=== PATIENT | male | born 1940 ===

== ENCOUNTER 2019-09-12 15:51 | Inpatient (IN) | payer MEDICARE, OTHER ==
[2019-09-12] MEDS ORDERED: Nitroglycerin 0.4 MG TAB 1 EACH SL PRN (17:09)
[2019-09-12 17:48] LABS: INR-International Normal Ratio 2.2; Prothrombin Time 24.1 SEC (12.0-14.7)
[2019-09-12] MEDS ORDERED: Warfarin Sodium 5 MG TAB PO SCH (20:00)
[2019-09-12] MEDS: Carvedilol 25 MG TAB PO SCH (20:41)
[2019-09-12] MEDS ORDERED: Atorvastatin Calcium 20 MG TAB PO SCH (21:00)
[2019-09-13 05:40] LABS: #Basophils 0.1 thou/uL (0.0-0.2); #Eosinphils 0.1 thou/uL (0.0-0.7); #Lymphocytes 0.5 thou/uL (1.20-3.40); #Monocytes 0.6 thou/uL (0.11-0.59); #Neutrophils 4.3 thou/uL (1.40-6.50); %Basophils 1.5 % (0.0-1.0); %Lymphocytes 9.3 % (21.0-51.0); %Monocytes 10.6 % (0.0-10.0); %Neutrophils 76.6 % (42.0-75.0); Hemoglobin 8.8 g/dL (14.0-18.0); Mean Corpuscular HGB CONC 31.4 g/dL (32.0-36.0); Mean Corpuscular Hemoglobin 25.7 pg (27.0-31.0); Mean Corpuscular Volume 81.9 fL (78.0-98.0); Mean Platelet Volume 9.4 fL (7.4-10.4); Platelet Count 198 thou/uL (130-400); RBC Distribution Width 17.7 % (11.5-14.5); Red Blood Cell (RBC) Count 3.44 mill/uL (4.70-6.10); White Blood Cell (WBC) Count 5.7 thou/uL (4.8-10.8)
[2019-09-13 05:49] LABS: INR-International Normal Ratio 1.9; Prothrombin Time 21.7 SEC (12.0-14.7)
[2019-09-13 06:00] LABS: ALT (SGPT) 26 U/L (8-55); AST (SGOT) 34 U/L (5-34); Albumin 3.3 g/dL (3.4-4.8); Alkaline Phosphatase 72 U/L (40-110); Anion Gap 16 mmol/L (10-20); BUN (Urea Nitrogen) 25 mg/dL (8.4-25.7); Bilirubin, Total 0.8 mg/dL (0.2-1.2); Calc. Creatinine Clearance 70 mL/min (70-130); Calcium 8.8 mg/dL (7.8-10.44); Carbon Dioxide 26 mmol/L (23-31); Chloride 102 mmol/L (98-107); Estimated GFR-MDRD 59; Globulin 2.8 g/dL (2.4-3.5); Glucose 126 mg/dL (83-110); Potassium 3.6 mmol/L (3.5-5.1); Protein, Total 6.1 g/dL (5.8-8.1); Sodium 140 mmol/L (136-145)
[2019-09-13] MEDS ORDERED: Furosemide 40 MG TAB PO SCH ×2 (06:15→09:00)
[2019-09-13] MEDS ORDERED: Dronedarone HCl 400 MG TAB PO SCH (08:00)
[2019-09-13] MEDS: Carvedilol 25 MG TAB PO SCH (08:20)
[2019-09-13] MEDS ORDERED: Aspirin 81 mg Enteric Coated Tablet PO SCH (09:00)
[2019-09-13] MEDS ORDERED: Lisinopril 10 MG TAB PO SCH (09:00)
[2019-09-13] MEDS ORDERED: Alogliptin 25 MG TAB PO SCH (09:00)
[2019-09-13] MEDS ORDERED: Nitroglycerin 0.4 MG TAB (25 Tab Bottle) SL PRN (09:47)
[2019-09-13] MEDS ORDERED: diphenhydrAMINE 25 MG CAP PO PRN (15:03)
--- NOTE | 2019-09-13 15:21 | HP ---
HISTORY OF PRESENT ILLNESS: Mr. Alfaro is a very pleasant 79-year-old white male, who was seen in my office on 09/06/2019. He has fatigue and feeling poorly and was found to be in atrial fibrillation with dyspnea on exertion and congestive heart failure. He was transferred to [facility], where he was treated medically. He eventually did have an echocardiogram by Dr. Kurtz. He was noted to be in atrial fibrillation and eventually was stabilized and transferred back to [facility] for physical therapy and occupational therapy. PAST MEDICAL HISTORY: 1. Hypertension. 2. Type 2 diabetes. 3. Coronary artery disease, status post CABG. 4. Osteoarthritis. 5. Hyperlipidemia. 6. Chronic obstructive pulmonary disease. 7. Mitral regurgitation. 8. Degenerative joint disease. 9. Congestive heart failure. PAST SURGICAL HISTORY: 1. CABG by Dr. Cho in 2000. 2. Left total knee replacement in 2007. 3. Mitral valve repair by Dr. Ramirez in [place] in 2003. 4. Cardiac catheterization by Dr. Rjaput in 2000. 5. Left eye cataract extraction by Dr. Baldwin in 2008. 6. Cataract extraction of the right eye in 2008. FAMILY HISTORY: Reveals the patient's father had Alzheimer's. The patient's mother had heart disease. The patient had one brother of lung cancer and one sister of colon cancer. The patient had 2 brothers and 7 sisters and 2 sons. No other children. SOCIAL HISTORY: Reveals the patient does not smoke. Lives with his spouse. Has his own business. He is . He has 2 children, both boys. Enjoyed help with any active exercise. He does drink typically once a day. ALLERGIES: THE PATIENT HAS NO KNOWN REGULAR ALLERGIES. REVIEW OF SYSTEMS: CONSTITUTIONAL: The patient denies fever, chills, or night sweats. Just has extreme fatigue. HEENT: The patient denies head injury or headaches. The patient denies visual changes. The patient denies change in his hearing. RESPIRATORY: The patient did previously have a cough, but it has resolved since he has been diuresed. The patient is short of breath with any exertion at this time. CARDIOVASCULAR: The patient denies PND, chest pain, orthopnea, or claudication. Denies also any edema. GI: Reveals the patient denies diarrhea, constipation, nausea, or vomiting. Denies hematemesis or hematochezia. Also, denies melena. : The patient denies any increased nocturia, dysuria, or hematuria. MUSCULOSKELETAL: The patient denies any joint swelling, joint pains, or stiffness. PHYSICAL EXAMINATION: VITAL SIGNS: Reveal blood pressure 137/72, pulse 97, respirations 18, O2 saturation 92% to 96% on 2 L, T-max 98.7. GENERAL: This is a well-developed, well-nourished, pleasant, 79-year-old, white male, in no apparent distress at this time. HEENT: Reveals normocephalic and nontraumatic cranium. Pupils are equal, round, and reactive. Extraocular movements are intact. Nose and throat are slightly dry. NECK: Supple without masses, nodes, or bruits. CHEST: Clear to auscultation. No rales, rhonchi, or wheezes are heard. HEART: Reveals a regular rate and rhythm without murmurs, gallops, or rubs. ABDOMEN: Soft and nontender without organomegaly. Normal bowel sounds are noted. No rebound or guarding is noted. : Deferred. EXTREMITIES: Reveal no clubbing, cyanosis, or edema. ASSESSMENT: 1. Status post atrial fibrillation. 2. Status post congestive heart failure. 3. Hypertension. 4. Coronary artery disease. 5. Hyperlipidemia. 6. Chronic obstructive pulmonary disease. 7. Degenerative joint disease. 8. Diabetes, type 2. 9. Generalized weakness. PLAN: 1. Continue present medications. 2. Further evaluation will be awaiting records from Cardiology. 3. The patient has generalized weakness. We will continue with his physical therapy and occupational therapy and his present hospital medications. PRESENT MEDICATIONS: The patient is presently on the followin. Alogliptin 25 mg daily. 2. Ecotrin 81 mg daily. 3. Lipitor 20 mg daily. 4. Coreg 12.5 mg b.i.d. 5. Cardizem 30 mg b.i.d. 6. Multaq 400 mg b.i.d. 7. Lasix 40 mg each day. 8. Lisinopril 10 mg daily. 9. Nitrostat (nitroglycerin) 1 q.5 minutes p.r.n. chest pain. 10. Warfarin 5 mg daily. Job ID: [id number]
[2019-09-13] MEDS ORDERED: Eucerin (Mineral Oil/Petrolatum,White) 30 gm Jar TOP PRN (16:35)
[2019-09-13] MEDS: Loratadine 10 MG TAB PO SCH (16:49)
[2019-09-13] MEDS: Warfarin Sodium 5 MG TAB PO SCH (16:50)
[2019-09-13] MEDS: Dronedarone HCl 400 MG TAB PO SCH (16:50)
[2019-09-13] MEDS ORDERED: Warfarin Sodium 5 MG TAB PO SCH ×2 (17:00)
[2019-09-13] MEDS: Carvedilol 6.25 MG TAB PO SCH (20:47)
[2019-09-13] MEDS: Eucerin (Mineral Oil/Petrolatum,White) 30 gm Jar TOP SCH (20:49)
[2019-09-13] MEDS ORDERED: Non-Formulary Item 1 EACH (Carvedilol [Coreg] 12.5 MG) PO SCH (21:00)
[2019-09-13] MEDS ORDERED: DILTIAZEM HCL 30 MG PO SCH (21:00)
[2019-09-14 05:26] LABS: INR-International Normal Ratio 2.1; Prothrombin Time 23.4 SEC (12.0-14.7)
[2019-09-14] MEDS: Lisinopril 10 MG TAB PO SCH (08:39)
[2019-09-14] MEDS: Atorvastatin Calcium 20 MG TAB PO SCH (08:39)
[2019-09-14] MEDS: Alogliptin 25 MG TAB PO SCH (08:39)
[2019-09-14] MEDS: Furosemide 40 MG TAB PO SCH (08:40)
[2019-09-14] MEDS: Carvedilol 6.25 MG TAB PO SCH ×2 (08:40→21:00)
[2019-09-14] MEDS: Eucerin (Mineral Oil/Petrolatum,White) 30 gm Jar TOP SCH ×2 (08:40→21:06)
[2019-09-14] MEDS: Aspirin 81 mg Enteric Coated Tablet PO SCH (08:40)
[2019-09-14] MEDS: Dronedarone HCl 400 MG TAB PO SCH ×2 (08:40→16:24)
[2019-09-14] MEDS ORDERED: Non-Formulary Item 1 EACH (Sitagliptin Phosphate [Januvia] 100 MG) PO SCH (09:00)
[2019-09-14] MEDS: Loratadine 10 MG TAB PO SCH (16:24)
[2019-09-14] MEDS: Warfarin Sodium 5 MG TAB PO SCH (16:25)
--- NOTE | 2019-09-14 17:24 | PRG ---
DATE OF SERVICE: 09/14/2019 Patient of Liana Dwyer MD SUBJECTIVE: The patient is lying in the bed, feeling well. Did have some chest tightness previously, but had resolved without treatment. He has been found within the last week to have new onset of atrial fibrillation with rapid ventricular response, seen and evaluated at [facility] and started on antiarrhythmic, some rate control and anticoagulation. He has remained however in atrial fibrillation. He has a previous history of mitral regurgitation status post surgical repair and coronary artery disease status post coronary artery bypass graft in 2000. However, he has had no significant symptoms of shortness of breath or chest pain until this episode, he was found earlier today to have tachycardia and hypotension associated with his therapy and with minimal symptoms of weakness and dizziness, but no chest pain or shortness of breath. He is taking at this time carvedilol, diltiazem, Multaq, and digoxin for rate control of his atrial fibrillation. He denies any orthopnea, palpitations, or edema. OBJECTIVE: VITAL SIGNS: At this time show blood pressure to be 109/56, pulse 61, earlier it was 80/42 with a pulse 73 and earlier in the day, it was with a pulse of 111. EKG this afternoon shows atrial fibrillation with no ischemic changes. LUNGS: Clear. CARDIAC: Shows a regular rhythm. ABDOMEN: Soft and nontender. SKIN/EXTREMITIES: Showed no edema. LABORATORY DATA: His laboratories done yesterday did show him to have an elevated BNP of 1245 and a slightly elevated BUN 25, creatinine 1.19, but a decreased hemoglobin of 8.8 compared to 12.1 two years ago. ASSESSMENT: 1. Atrial fibrillation with rapid ventricular response, being treated with multiple medications for rate control and for new onset of anticoagulation. 2. New onset of anemia, possibly contributing to hypotension. 3. Congestive heart failure with elevated BNP and minimal dyspnea on exertion, but not at rest. 4. Type 2 diabetes, controlled to goal. 5. Coronary artery disease, purely asymptomatic. PLAN: 1. Discontinue Cardizem. Continue carvedilol, digoxin, and Multaq for rate control. 2. Continue apixaban for anticoagulation. 3. Guaiac all stools and repeat CBC, basic metabolic profile, and BNP in the a.m. 4. Continue Accu-Cheks to monitor and titrate and control diabetes. Job ID: [id number]
[2019-09-15 05:59] LABS: #Basophils 0.1 thou/uL (0.0-0.2); #Eosinphils 0.2 thou/uL (0.0-0.7); #Lymphocytes 0.9 thou/uL (1.20-3.40); #Monocytes 0.6 thou/uL (0.11-0.59); #Neutrophils 4.3 thou/uL (1.40-6.50); %Basophils 1.6 % (0.0-1.0); %Eosinophils 2.9 % (0.0-10.0); %Lymphocytes 14.5 % (21.0-51.0); %Monocytes 9.3 % (0.0-10.0); %Neutrophils 71.7 % (42.0-75.0); Hemoglobin 8.1 g/dL (14.0-18.0); Mean Corpuscular HGB CONC 30.3 g/dL (32.0-36.0); Mean Corpuscular Hemoglobin 25.1 pg (27.0-31.0); Mean Corpuscular Volume 82.8 fL (78.0-98.0); Platelet Count 178 thou/uL (130-400); RBC Distribution Width 18.4 % (11.5-14.5); Red Blood Cell (RBC) Count 3.24 mill/uL (4.70-6.10); White Blood Cell (WBC) Count 5.9 thou/uL (4.8-10.8)
[2019-09-15 06:01] LABS: INR-International Normal Ratio 2.1; Prothrombin Time 23.8 SEC (12.0-14.7)
[2019-09-15 06:10] LABS: Anion Gap 15 mmol/L (10-20); BUN (Urea Nitrogen) 32 mg/dL (8.4-25.7); Calc. Creatinine Clearance 57 mL/min (70-130); Calcium 8.3 mg/dL (7.8-10.44); Carbon Dioxide 25 mmol/L (23-31); Chloride 100 mmol/L (98-107); Estimated GFR-MDRD 47; Glucose 97 mg/dL (83-110); Potassium 3.5 mmol/L (3.5-5.1); Sodium 136 mmol/L (136-145)
[2019-09-15] MEDS: Carvedilol 6.25 MG TAB PO SCH ×2 (08:44→20:50)
[2019-09-15] MEDS: Alogliptin 25 MG TAB PO SCH (08:44)
[2019-09-15] MEDS: Furosemide 40 MG TAB PO SCH (08:44)
[2019-09-15] MEDS: Lisinopril 10 MG TAB PO SCH (08:44)
[2019-09-15] MEDS: Dronedarone HCl 400 MG TAB PO SCH ×2 (08:44→17:56)
[2019-09-15] MEDS: Atorvastatin Calcium 20 MG TAB PO SCH (08:44)
[2019-09-15] MEDS: Aspirin 81 mg Enteric Coated Tablet PO SCH (08:44)
[2019-09-15] MEDS: Eucerin (Mineral Oil/Petrolatum,White) 30 gm Jar TOP SCH ×2 (08:44→20:52)
[2019-09-15] MEDS: Loratadine 10 MG TAB PO SCH (17:56)
[2019-09-15] MEDS: Warfarin Sodium 5 MG TAB PO SCH (17:57)
[2019-09-16 05:33] LABS: INR-International Normal Ratio 2.1; Prothrombin Time 23.6 SEC (12.0-14.7)
[2019-09-16] MEDS: Dronedarone HCl 400 MG TAB PO SCH ×2 (08:46→17:24)
[2019-09-16] MEDS: Furosemide 40 MG TAB PO SCH (08:46)
[2019-09-16] MEDS: Lisinopril 10 MG TAB PO SCH (08:46)
[2019-09-16] MEDS: Atorvastatin Calcium 20 MG TAB PO SCH (08:47)
[2019-09-16] MEDS: Aspirin 81 mg Enteric Coated Tablet PO SCH (08:47)
[2019-09-16] MEDS: Carvedilol 6.25 MG TAB PO SCH ×2 (08:47→20:32)
[2019-09-16] MEDS: Eucerin (Mineral Oil/Petrolatum,White) 30 gm Jar TOP SCH ×2 (08:48→20:33)
[2019-09-16] MEDS: Alogliptin 25 MG TAB PO SCH (08:48)
[2019-09-16] MEDS: Loratadine 10 MG TAB PO SCH (17:24)
[2019-09-16] MEDS: Warfarin Sodium 5 MG TAB PO SCH (17:25)
--- NOTE | 2019-09-16 20:59 | PRG ---
DATE OF SERVICE: 09/15/[address] Liana Dwyer. SUBJECTIVE: The patient feels much better. No further dizziness or lightheadedness. No palpitations, chest pain, or shortness of breath. He is sitting up in the chair, watching TV, but has been walking in the room and in the melgar. OBJECTIVE: VITAL SIGNS: Show temperature 98, pulse 90, respirations 18, O2 sat is 96% on room air, and blood pressure 123/68. LUNGS: Clear. CARDIAC: Shows irregularly irregular rhythm. ABDOMEN: Soft, nontender. SKIN/EXTREMITIES: Showed no edema, clubbing, or cyanosis. LABORATORY DATA: Show white count of 5900, hematocrit 26, and hemoglobin 8. PT 23, INR 2.1. Sodium 136, potassium 3.5, chloride 100, bicarb 25, BUN 32, and creatinine 1.46. ASSESSMENT: 1. Stabilizing atrial fibrillation. No further rapid ventricular response and stable blood pressure with no orthostasis. 2. Anemia, stable. 3. Congestive heart failure with persistent elevated BNP, but improving dyspnea on exertion and not at rest. 4. Type 2 diabetes, controlled to goal. 5. Coronary artery disease, asymptomatic. PLAN: 1. Continue on carvedilol, digoxin, and Multaq with no further Cardizem. 2. Continue warfarin for anticoagulation as appears to be therapeutic INR. 3. Guaiac all stools. 4. Continue Accu-Cheks. Monitor, titrate, and control diabetes. Job ID: [id number]
--- NOTE | 2019-09-16 21:06 | PRG ---
DATE OF SERVICE: 09/16/2019 SUBJECTIVE: The patient feels well, sitting up, watching TV, doing electric shave. States he has been walking in the melgar today in the room with no dyspnea or shortness of breath. OBJECTIVE: LUNGS: Clear. CARDIAC: Irregularly irregular rhythm. ABDOMEN: Soft and nontender. SKIN AND EXTREMITIES: Display no edema, clubbing, or cyanosis. NEUROLOGICAL: No focal findings. ASSESSMENT: 1. Atrial fibrillation with controlled ventricular response and adequate anticoagulation, on warfarin. 2. Type 2 diabetes, controlled to goal. 3. New onset of congestive heart failure, appears to be compensating but still persistent elevated BNP. 4. Anemia of unknown etiology. The patient is on anticoagulation, slightly worsen, and we will repeat in the a.m. as well as BNP and BMP. Job ID: [id number]
[2019-09-17 05:39] LABS: INR-International Normal Ratio 2.2; Prothrombin Time 24.5 SEC (12.0-14.7)
[2019-09-17 05:45] LABS: Anion Gap 14 mmol/L (10-20); BUN (Urea Nitrogen) 30 mg/dL (8.4-25.7); Calc. Creatinine Clearance 63 mL/min (70-130); Calcium 8.1 mg/dL (7.8-10.44); Carbon Dioxide 26 mmol/L (23-31); Chloride 100 mmol/L (98-107); Estimated GFR-MDRD 51; Glucose 101 mg/dL (83-110); Potassium 3.5 mmol/L (3.5-5.1); Sodium 136 mmol/L (136-145)
[2019-09-17 05:47] LABS: #Basophils 0.1 thou/uL (0.0-0.2); #Eosinphils 0.2 thou/uL (0.0-0.7); #Lymphocytes 0.7 thou/uL (1.20-3.40); #Monocytes 0.5 thou/uL (0.11-0.59); #Neutrophils 3.4 thou/uL (1.40-6.50); %Basophils 1.7 % (0.0-1.0); %Lymphocytes 13.8 % (21.0-51.0); %Monocytes 9.4 % (0.0-10.0); %Neutrophils 70.1 % (42.0-75.0); Hemoglobin 7.9 g/dL (14.0-18.0); Mean Corpuscular HGB CONC 30.7 g/dL (32.0-36.0); Mean Corpuscular Hemoglobin 25.4 pg (27.0-31.0); Mean Platelet Volume 10.2 fL (7.4-10.4); Platelet Count 195 thou/uL (130-400); RBC Distribution Width 18.7 % (11.5-14.5); Red Blood Cell (RBC) Count 3.11 mill/uL (4.70-6.10); White Blood Cell (WBC) Count 4.8 thou/uL (4.8-10.8)
[2019-09-17 05:48] LABS: Hypochromia SLIGHT = 6-15 cells (100X) (0-5/hpf); MDiff Complete? YES; Microcytosis SLIGHT = 6-15 cells (100X) (0-5/hpf); Platelet Morphology Comment Appears Adequate
[2019-09-17] MEDS: Dronedarone HCl 400 MG TAB PO SCH ×2 (08:42→17:29)
[2019-09-17] MEDS: Atorvastatin Calcium 20 MG TAB PO SCH (08:43)
[2019-09-17] MEDS: Aspirin 81 mg Enteric Coated Tablet PO SCH (08:43)
[2019-09-17] MEDS: Alogliptin 25 MG TAB PO SCH (08:43)
[2019-09-17] MEDS: Carvedilol 6.25 MG TAB PO SCH ×2 (08:43→20:39)
[2019-09-17] MEDS: Furosemide 40 MG TAB PO SCH (08:44)
[2019-09-17] MEDS: Lisinopril 10 MG TAB PO SCH (08:44)
[2019-09-17] MEDS: Eucerin (Mineral Oil/Petrolatum,White) 30 gm Jar TOP SCH ×2 (08:45→20:39)
[2019-09-17] MEDS: Loratadine 10 MG TAB PO SCH (17:29)
[2019-09-17] MEDS: Warfarin Sodium 5 MG TAB PO SCH (17:30)
--- NOTE | 2019-09-17 19:13 | PRG ---
DATE OF SERVICE: 09/17/2019 SUBJECTIVE: This is a well-developed, well-nourished, very pleasant 79-year-old white male who was seen in my office with new onset of atrial fibrillation. He was transferred to [facility] with significant dyspnea on exertion. He was treated medically. Had an echocardiogram by Dr. Kurtz and eventually stabilized and rate controlled. He was transferred to [facility] because of his extreme weakness. OBJECTIVE: VITAL SIGNS: Today reveal blood pressure 122/64, pulse ranging between 86 and 102, respirations 18, and O2 saturation 90% to 95% on 2 L nasal cannula. GENERAL: This is a well-developed, well-nourished, very pleasant 79-year-old white male, in no apparent distress at this time. HEENT: Reveals normocephalic and nontraumatic cranium. Pupils are equal, round, and reactive. Extraocular movements are intact. Nose and throat are slightly dry. NECK: Supple without masses, nodes, or bruits. CHEST: Clear to auscultation. No rales, rhonchi, or wheezes are heard. HEART: Reveals a regular rate and rhythm without murmurs, gallops, or rubs. ABDOMEN: Soft, nontender without organomegaly. Normal bowel sounds are noted. No rebound or guarding was noted. : Deferred. EXTREMITIES: Reveal no clubbing, cyanosis, or edema. Just generalized weakness which was much improved. ASSESSMENT: 1. New onset atrial fibrillation. 2. Congestive heart failure. 3. Hypertension. 4. Coronary artery disease, status post coronary artery bypass grafting. 5. Hyperlipidemia. 6. Chronic obstructive pulmonary disease. 7. Degenerative joint disease. 8. Diabetes, type 2. 9. Osteoarthritis. 10. Mitral regurgitation. 11. Generalized weakness. PLAN: 1. Continue present medications. 2. Continue to monitor the patient's diabetes with Accu-Cheks a.c. and at bedtime. 3. Continue to monitor the patient's diabetes closely. 4. Continue to monitor the patient for signs and symptoms of congestive heart failure. 5. Monitor the patient's respiratory status. 6. Stress ulcer prophylaxis. 7. Decubitus precautions. 8. DVT prophylaxis per Primary Service. 9. Physical Therapy and Occupational Therapy. 10. Continue to monitor the patient's INR. Job ID: [id number]
[2019-09-18 05:49] LABS: INR-International Normal Ratio 2.2; Prothrombin Time 24.1 SEC (12.0-14.7)
[2019-09-18] MEDS: Alogliptin 25 MG TAB PO SCH (08:21)
[2019-09-18] MEDS: Aspirin 81 mg Enteric Coated Tablet PO SCH (08:21)
[2019-09-18] MEDS: Dronedarone HCl 400 MG TAB PO SCH ×2 (08:21→16:52)
[2019-09-18] MEDS: Carvedilol 6.25 MG TAB PO SCH ×2 (08:22→20:58)
[2019-09-18] MEDS: Atorvastatin Calcium 20 MG TAB PO SCH (08:22)
[2019-09-18] MEDS: Furosemide 40 MG TAB PO SCH (08:22)
[2019-09-18] MEDS: Lisinopril 10 MG TAB PO SCH (08:23)
[2019-09-18] MEDS: Eucerin (Mineral Oil/Petrolatum,White) 30 gm Jar TOP SCH ×2 (08:23→20:59)
--- NOTE | 2019-09-18 10:45 | PRG ---
DATE OF SERVICE: 09/18/2019 SUBJECTIVE: Mr. Alfaro is a pleasant 79-year-old white male, with new onset of atrial fibrillation. Sent directly to [facility] because he had dyspnea on exertion. He is treated medically and had an echocardiogram by Dr. Kurtz. Eventually stabilized and rate controlled. He was transferred to [facility] because of extreme weakness, for physical therapy and occupational therapy. OBJECTIVE: VITAL SIGNS: Reveal blood pressure this morning was 121/74, pulse 92, respirations 18, O2 saturation 94% on nasal cannula 2 L, T-max is 98.5. GENERAL: On physical exam; this is a well-developed, well-nourished, very pleasant 79-year-old white male, in no apparent distress at this time. HEENT: Reveals normocephalic and nontraumatic cranium. Pupils are equal, round, and reactive. Extraocular movements are intact. Nose and throat are slightly dry. NECK: Supple without masses, nodes, or bruits. CHEST: Clear to auscultation. No rales, rhonchi, wheezes, or cough is heard. HEART: Reveals no murmurs, gallops, or rubs. He is rate controlled with atrial fibrillation. ABDOMEN: Soft, nontender without organomegaly. Normal bowel sounds noted in all 4 quadrants. No rebound or guarding is noted. : Deferred. EXTREMITIES: Reveal no clubbing or cyanosis, but he does have 1 to 2+ edema, which is stable. He has generalized weakness, which is significantly improved. ASSESSMENT: 1. New onset atrial fibrillation. 2. Congestive heart failure. 3. Hypertension. 4. Coronary artery disease, status post coronary artery bypass graft. 5. Hyperlipidemia. 6. Chronic obstructive pulmonary disease. 7. Degenerative joint disease. 8. Diabetes type 2. 9. Mitral regurgitation. 10. Osteoarthritis. 11. Generalized weakness. PLAN: 1. Continue present medications. 2. Continue to follow the patient's weight daily. 3. Continue to monitor the patient closely for signs and symptoms of congestive heart failure. 4. Monitor the patient's diabetes with Accu-Cheks a.c. and at bedtime. 5. Monitor the patient's blood pressure closely and adjust medications as needed. 6. Monitor the patient's respiratory status. 7. Stress ulcer prophylaxis. 8. Decubitus precautions. 9. DVT prophylaxis. 10. Physical therapy and occupational therapy. 11. Monitor the patient's INR. Job ID: [id number]
[2019-09-18] MEDS: Loratadine 10 MG TAB PO SCH (16:52)
[2019-09-18] MEDS: Warfarin Sodium 5 MG TAB PO SCH (16:52)
[2019-09-19] MEDS: Lisinopril 10 MG TAB PO SCH (08:58)
[2019-09-19] MEDS: Dronedarone HCl 400 MG TAB PO SCH ×2 (08:58→17:53)
[2019-09-19] MEDS: Furosemide 40 MG TAB PO SCH (08:59)
[2019-09-19] MEDS: Eucerin (Mineral Oil/Petrolatum,White) 30 gm Jar TOP SCH ×2 (08:59→20:21)
[2019-09-19] MEDS: Atorvastatin Calcium 20 MG TAB PO SCH (08:59)
[2019-09-19] MEDS: Alogliptin 25 MG TAB PO SCH (08:59)
[2019-09-19] MEDS: Carvedilol 6.25 MG TAB PO SCH ×2 (08:59→20:21)
[2019-09-19] MEDS: Aspirin 81 mg Enteric Coated Tablet PO SCH (08:59)
[2019-09-19] MEDS ORDERED: Furosemide 40 MG TAB PO SCH ×2 (10:45→14:30)
--- NOTE | 2019-09-19 15:24 | PRG ---
DATE OF SERVICE: 09/19/2019 SUBJECTIVE: Mr. Alfaro is a pleasant 79-year-old white male, with new onset of atrial fib. He was seen in my office and sent to [facility] because of his significant dyspnea. Treated medically and had an echocardiogram done by Dr. Kurtz. His rate was stabilized and controlled, and he was transferred to [facility] for PT and OT to increase his strength and stamina. Vital signs this morning reveal blood pressure of 121/74, pulse of 99, respirations of 20, and O2 sat of 92%. The patient began to have some shortness of breath. It was felt that the patient was most likely in CHF. Respiratory did give him a handheld neb treatment, but he received 40 of Lasix and promptly did much better. The patient states he actually woke up about 3 in the morning somewhat short of breath and got progressively worse after that. PHYSICAL EXAMINATION: GENERAL: A well-developed, well-nourished, very pleasant 79-year-old white male, in no apparent distress at this time. HEENT: Normocephalic and nontraumatic cranium. Pupils equally round and reactive. Extraocular movements are intact. Nose and throat are clear and moist. NECK: Supple without masses, nodes or bruits. CHEST: Clear to auscultation, but rales and wheezes are not heard. The patient has rare cough. The patient does have bibasilar rales in his bases. Apparently, they are much less than they were this morning. HEART: Regular rate and rhythm, rate controlled. ABDOMEN: Soft, nontender without organomegaly. Normal bowel sounds are noted in all 4 quadrants. : Deferred. EXTREMITIES: No clubbing, cyanosis, but about 2+ edema is noted. He has generalized weakness and his oxygen volume yesterday was 2 L or 2000 mL and today was 1000 during his acute exacerbation. ASSESSMENT: 1. Acute exacerbation of congestive heart failure. 2. New-onset atrial fibrillation, presently rate controlled. 3. Hypertension. 4. Coronary artery disease, status post coronary artery bypass graft. 5. . 6. Chronic obstructive pulmonary disease. 7. Degenerative joint disease. 8. Diabetes, type 2. 9. Mitral regurgitation. 10. Osteoarthritis. 11. Generalized weakness. PLAN: 1. The patient this morning and received an extra 40 this evening. 2. Continue other present medications. 3. Monitor the patient's weight daily. 4. Monitor the patient for any future signs and symptoms of congestive heart failure. 5. Monitor the patient's diabetes with Accu-Cheks a.c. and at bedtime. 6. Monitor the patient's blood pressure closely. 7. Monitor the patient's respiratory status. 8. Stress ulcer prophylaxis. 9. Decubitus precautions. 10. DVT prophylaxis. 11. Physical therapy and occupational therapy. 12. Monitor the patient's INR. Job ID: [id number]
[2019-09-19] MEDS: Loratadine 10 MG TAB PO SCH (17:53)
[2019-09-19] MEDS: Warfarin Sodium 5 MG TAB PO SCH (17:54)
[2019-09-20 05:38] LABS: Prothrombin Time 22.9 SEC (12.0-14.7)
[2019-09-20 05:45] LABS: #Basophils 0.1 thou/uL (0.0-0.2); #Eosinphils 0.2 thou/uL (0.0-0.7); #Lymphocytes 0.7 thou/uL (1.20-3.40); #Monocytes 0.6 thou/uL (0.11-0.59); #Neutrophils 3.9 thou/uL (1.40-6.50); %Basophils 1.9 % (0.0-1.0); %Eosinophils 3.9 % (0.0-10.0); %Lymphocytes 13.3 % (21.0-51.0); %Monocytes 10.5 % (0.0-10.0); %Neutrophils 70.5 % (42.0-75.0); Hemoglobin 8.4 g/dL (14.0-18.0); Hypochromia SLIGHT = 6-15 cells (100X) (0-5/hpf); MDiff Complete? YES; Mean Corpuscular HGB CONC 30.2 g/dL (32.0-36.0); Mean Corpuscular Volume 82.8 fL (78.0-98.0); Mean Platelet Volume 9.6 fL (7.4-10.4); Ovalocytes SLIGHT = 2-5 cells (100X) (0-1/hpf); Platelet Count 208 thou/uL (130-400); Platelet Morphology Comment Appears Adequate; RBC Distribution Width 18.8 % (11.5-14.5); Red Blood Cell (RBC) Count 3.37 mill/uL (4.70-6.10); White Blood Cell (WBC) Count 5.5 thou/uL (4.8-10.8)
[2019-09-20 05:46] LABS: Anion Gap 16 mmol/L (10-20); BUN (Urea Nitrogen) 36 mg/dL (8.4-25.7); Calc. Creatinine Clearance 49 mL/min (70-130); Calcium 8.5 mg/dL (7.8-10.44); Carbon Dioxide 23 mmol/L (23-31); Chloride 101 mmol/L (98-107); Estimated GFR-MDRD 39; Glucose 121 mg/dL (83-110); Potassium 3.6 mmol/L (3.5-5.1); Sodium 136 mmol/L (136-145)
[2019-09-20] MEDS ORDERED: Furosemide 40 MG/4 ML VIAL ONE (05:56)
[2019-09-20] MEDS ORDERED: Furosemide 80 MG TAB PO SCH (06:15)
[2019-09-20] MEDS: Furosemide 40 MG TAB PO SCH ×2 (07:01→16:23)
--- NOTE | 2019-09-20 07:51 | RAD ---
Chest AP view INDICATION: Shortness of breath COMPARISON: None FINDINGS: Lungs:There is interstitial and airspace opacities seen most prominently within the right upper lobe suspicious for pneumonia. Asymmetric pulmonary edema could have a similar appearance. There is a background of underlying interstitial and airspace edema seen throughout both lungs. Cardiac silhouette:There is mild cardiomegaly Pulmonary vasculature:There is mild pulmonary vascular congestion Pleural spaces:There are small bilateral pleural effusions. Upper abdomen:No abnormality seen. Osseous structures: No acute osseous abnormality. Additional findings:Changes of prior CABG. IMPRESSION: 1. Findings suggesting [id number] CHF. 2. More prominent airspace opacity in the right upper lobe may reflect asymmetric airspace edema; how ever, pneumonia could have a similar appearance.
[2019-09-20] MEDS: Atorvastatin Calcium 20 MG TAB PO SCH (08:15)
[2019-09-20] MEDS: Carvedilol 6.25 MG TAB PO SCH ×2 (08:15→21:34)
[2019-09-20] MEDS: Lisinopril 10 MG TAB PO SCH (08:15)
[2019-09-20] MEDS: Dronedarone HCl 400 MG TAB PO SCH ×2 (08:15→16:23)
[2019-09-20] MEDS: Aspirin 81 mg Enteric Coated Tablet PO SCH (08:15)
[2019-09-20] MEDS: Alogliptin 25 MG TAB PO SCH (08:16)
[2019-09-20] MEDS: Eucerin (Mineral Oil/Petrolatum,White) 30 gm Jar TOP SCH ×2 (08:16→21:34)
[2019-09-20] MEDS: Warfarin Sodium 5 MG TAB PO SCH (16:23)
[2019-09-20] MEDS: Loratadine 10 MG TAB PO SCH (16:23)
--- NOTE | 2019-09-20 18:47 | PRG ---
DATE OF SERVICE: 09/20/2019 SUBJECTIVE: Mr. Alfaro is a 79-year-old white male, seen in my office with acute onset of shortness of breath and weakness. He was found to have atrial fibrillation and was transferred to [facility] for further evaluation. There, he was seen by Dr. Kurtz, treated medically, and stabilized. His rate was controlled, and he was transferred back to [facility] for physical therapy and occupational therapy to increase his strength and stamina. The patient this morning awakened about 7 o'clock and had some shortness of breath. He was given a handheld nebulizer treatment and also was given 80 of Lasix. He diuresed quite a bit. He states he could breathe better. By the time I saw him about 9 o'clock, he had been treated with therapy and tolerated therapy well and was doing well. He had no concerns or complaints. OBJECTIVE: VITAL SIGNS: This morning revealed blood pressure 116/63, oxygen sat went from 90% to 99%, respirations went from 22 to 18, pulse went from 103 down to 88, and T-max is 98.3. GENERAL: This patient is a well-developed, well-nourished, pleasant 79-year-old white male, who states he is much improved and back to his normal. HEENT: Reveals normocephalic and nontraumatic cranium. Pupils are equal, round, and reactive. Extraocular movements are intact. Nose and throat are clear, slightly dry. NECK: Supple without masses, nodes, or bruits. CHEST: Clear to auscultation. No rales are heard at this time. No wheezes are noted. HEART: Reveals irregularly irregular but rate controlled rhythm. ABDOMEN: Soft, nontender without organomegaly. Normal bowel sounds noted in all 4 quadrants. : Deferred. EXTREMITIES: Revealed no clubbing, cyanosis, with 1+ edema in lower extremities. ASSESSMENT: 1. Acute exacerbation of congestive heart failure. 2. New onset of atrial fib, presently rate controlled. 3. Hypertension. 4. Coronary artery disease. 5. Chronic obstructive pulmonary disease. 6. Degenerative joint disease. 7. Diabetes type 2. 8. Mitral regurgitation. 9. Osteoarthritis. 10. Generalized weakness. PLAN: 1. The patient received 80 mg of Lasix this morning. 2. By the time I saw him this morning, he was back to his normal. 3. Continue to weigh the patient daily. 4. Monitor the patient for any future signs and symptoms of CHF. 5. Monitor the patient's diabetes with Accu-Cheks before meals and at bedtime. 6. Monitor the patient's blood pressure closely. 7. Monitor the patient's respiratory status. 8. Stress ulcer prophylaxis. 9. Decubitus precautions. 10. DVT prophylaxis. 11. Physical therapy and occupational therapy. 12. Continue to monitor the patient's INR. Job ID: [id number]
[2019-09-21 05:25] LABS: INR-International Normal Ratio 2.2; Prothrombin Time 24.2 SEC (12.0-14.7)
[2019-09-21] MEDS: Dronedarone HCl 400 MG TAB PO SCH ×2 (08:20→17:17)
[2019-09-21] MEDS: Aspirin 81 mg Enteric Coated Tablet PO SCH (08:20)
[2019-09-21] MEDS: Carvedilol 6.25 MG TAB PO SCH ×2 (08:21→21:46)
[2019-09-21] MEDS: Lisinopril 10 MG TAB PO SCH (08:21)
[2019-09-21] MEDS: Atorvastatin Calcium 20 MG TAB PO SCH (08:22)
[2019-09-21] MEDS: Alogliptin 25 MG TAB PO SCH (08:22)
[2019-09-21] MEDS: Furosemide 40 MG TAB PO SCH ×2 (08:22→14:00)
[2019-09-21] MEDS: Eucerin (Mineral Oil/Petrolatum,White) 30 gm Jar TOP SCH ×2 (08:22→21:47)
--- NOTE | 2019-09-21 15:47 | PRG ---
DATE OF SERVICE: 09/21/2019 SUBJECTIVE: Mr. Alfaro is a very pleasant 79-year-old white male, who presented to my office with acute shortness of breath and weakness. He was found to have atrial fib, transferred to [facility] for further evaluation, was seen by Dr. Kurtz. He was treated medically, stabilized. Heart rate was controlled, transferred back to [facility] for PT, OT, and increase his strength and stamina. The patient requested a family meeting with both of his sons present, that occurred today from 1 o'clock until about 0150 hours. At that time, we discussed all of his diagnoses, especially his atrial fibrillation and his COPD. He has been having some congestive heart failure signs and symptoms over the past 2 days and required more Lasix and handheld nebulizers. He does have a 40 plus pack-year history of smoking, so he does also have an element of COPD. Discussion was also about approximate future plans including discharge to home, where he will have either outpatient physical therapy and occupational therapy or home health with physical therapy and occupational therapy going to his home. It is also recommended that he will have a sleep study with Dr. Donta Claros in the future. It is also recommended that he will get restarted on his vitamin D3 of 2000 units also. The patient already has an appointment with Dr. John Rajput at 2 o'clock on October 10. OBJECTIVE: VITAL SIGNS: Today reveal blood pressure 110/63, pulse 86 to 99, respirations 18 to 20, O2 saturation is on 3 L, T-max 96.0. GENERAL: This is a well-developed, well-nourished, pleasant white male, in no apparent distress. His 2 sons were present during the whole interview and physical. NECK: Supple without masses, nodes, or bruits. CHEST: Clear with minimal rales noted in the left base mainly. No wheezes were noted. HEART: Reveals a continued irregularly irregular rate and rhythm without murmurs, gallops, or rubs. ABDOMEN: Still soft, nontender without organomegaly. Normal bowel sounds noted in all 4 quadrants. No rebound or guarding is noted. : Deferred. EXTREMITIES: Continues with 1+ edema in lower extremities. The patient has an ER weight today of 206. ASSESSMENT: 1. Acute exacerbation of congestive heart failure. 2. New-onset atrial fib, presently rate controlled. 3. Hypertension. 4. Coronary artery disease. 5. Chronic obstructive pulmonary disease. 6. Degenerative joint disease. 7. Diabetes type 2. 8. Mitral regurgitation. 9. Osteoarthritis. 10. Generalized weakness. PLAN: 1. The patient will continue with Lasix 40 b.i.d. at this time. 2. He will continue with handheld nebs q.i.d. and p.r.n. 3. Continue with a daily weight on the same standing scale daily. 4. Monitor the patient for signs and symptoms of CHF. 5. Monitor the patient's diabetes with Accu-Cheks a.c. and at bedtime. 6. Continue to monitor the patient's blood pressure closely and adjust medications if needed. 7. Monitor the patient's respiratory status. 8. Stress ulcer prophylaxis. 9. Decubitus precautions. 10. Continue physical therapy and occupational therapy. 11. Continue to maintain the patient's INR between 2 and 3, it is presently 2.2. Job ID: [id number]
[2019-09-21] MEDS: Warfarin Sodium 5 MG TAB PO SCH (17:17)
[2019-09-21] MEDS: Loratadine 10 MG TAB PO SCH (17:17)
[2019-09-22 05:35] LABS: INR-International Normal Ratio 2.1; Prothrombin Time 23.7 SEC (12.0-14.7)
[2019-09-22] MEDS: Alogliptin 25 MG TAB PO SCH (08:13)
[2019-09-22] MEDS: Dronedarone HCl 400 MG TAB PO SCH ×2 (08:13→17:17)
[2019-09-22] MEDS: Aspirin 81 mg Enteric Coated Tablet PO SCH (08:13)
[2019-09-22] MEDS: Carvedilol 6.25 MG TAB PO SCH ×2 (08:14→20:54)
[2019-09-22] MEDS: Atorvastatin Calcium 20 MG TAB PO SCH (08:14)
[2019-09-22] MEDS: Furosemide 40 MG TAB PO SCH ×2 (08:15→13:00)
[2019-09-22] MEDS: Lisinopril 10 MG TAB PO SCH (08:15)
[2019-09-22] MEDS: Eucerin (Mineral Oil/Petrolatum,White) 30 gm Jar TOP SCH ×3 (08:15→20:54)
--- NOTE | 2019-09-22 10:51 | PRG ---
DATE OF SERVICE: 09/22/2019 SUBJECTIVE: Mr. Alfaro is up in his chair and denies any complaints. He states that his breathing is better. He is still on oxygen via nasal cannula. No family at bedside. Discussed with nursing. OBJECTIVE: VITAL SIGNS: He is afebrile. Heart rate is 99, respirations 20, oxygen saturation 100% on 3 L, and blood pressure 125/57. CARDIOVASCULAR SYSTEM: S1 and S2 plus. RESPIRATORY SYSTEM: Normal vesicular breath sounds with occasional crackle. ABDOMEN: Soft and nontender. Bowel sounds heard in all quadrants. EXTREMITIES: Without cyanosis or clubbing. Trace edema. CENTRAL NERVOUS SYSTEM: Generalized weakness, otherwise nonfocal. IMPRESSION: 1. Atrial fibrillation, rate controlled. 2. Resolving acute on chronic congestive heart failure, likely systolic. 3. Possible chronic obstructive pulmonary disease. 4. Acute hypoxemic respiratory failure. 5. Diabetes mellitus, type 2. 6. Hypertension. 7. Coronary artery disease. PLAN: 1. Continue current medications. 2. Heart-healthy 1800-calorie ADA diet. 3. Accu-Cheks with sliding scale coverage. 4. Titrate oxygen as tolerated. 5. Breathing treatments as needed. 6. Recheck BMP tomorrow. 7. Physical therapy. 8. DVT and stress ulcer prophylaxis. Job ID: [id number]
[2019-09-22] MEDS: Warfarin Sodium 5 MG TAB PO SCH (17:17)
[2019-09-22] MEDS: Loratadine 10 MG TAB PO SCH (17:17)
[2019-09-23 05:30] LABS: INR-International Normal Ratio 2.4
[2019-09-23 05:37] LABS: Anion Gap 14 mmol/L (10-20); BUN (Urea Nitrogen) 40 mg/dL (8.4-25.7); Calc. Creatinine Clearance 43 mL/min (70-130); Calcium 8.4 mg/dL (7.8-10.44); Carbon Dioxide 26 mmol/L (23-31); Chloride 100 mmol/L (98-107); Estimated GFR-MDRD 32; Glucose 111 mg/dL (83-110); Potassium 3.4 mmol/L (3.5-5.1); Sodium 137 mmol/L (136-145)
[2019-09-23] MEDS: Dronedarone HCl 400 MG TAB PO SCH ×2 (08:28→17:45)
[2019-09-23] MEDS: Aspirin 81 mg Enteric Coated Tablet PO SCH (08:29)
[2019-09-23] MEDS: Alogliptin 25 MG TAB PO SCH (08:29)
[2019-09-23] MEDS: Atorvastatin Calcium 20 MG TAB PO SCH (08:30)
[2019-09-23] MEDS: Lisinopril 10 MG TAB PO SCH (08:30)
[2019-09-23] MEDS: Furosemide 40 MG TAB PO SCH ×2 (08:30→14:50)
[2019-09-23] MEDS: Carvedilol 6.25 MG TAB PO SCH ×2 (08:30→21:00)
[2019-09-23] MEDS: Eucerin (Mineral Oil/Petrolatum,White) 30 gm Jar TOP SCH ×2 (08:31→21:00)
--- NOTE | 2019-09-23 12:46 | PRG ---
DATE OF SERVICE: 09/23/2019 SUBJECTIVE: Mr. Alfaro is up in his chair and eating lunch. He denies any chest pain or shortness of breath. He did have some chest congestion this morning, but it cleared after he had a couple of deep coughs. OBJECTIVE: VITAL SIGNS: He is afebrile, heart rate is 108, respirations 20, oxygen saturation 94% on 3 L, blood pressure 121/74. CARDIOVASCULAR SYSTEM: S1 and S2 plus. RESPIRATORY SYSTEM: Normal vesicular breath sounds. ABDOMEN: Soft and nontender. Bowel sounds heard in all quadrants. EXTREMITIES: 2+ edema. CENTRAL NERVOUS SYSTEM: Generalized weakness. LABORATORY VALUES: Sodium 137, potassium 3.4, BUN and creatinine are 40 and 2.02. Blood sugars are 118, 115, 144, and 179. His INR is 2.4. IMPRESSION: 1. Resolving systolic congestive heart failure exacerbation. 2. Atrial fibrillation. 3. Acute hypoxemic respiratory failure. 4. Diabetes mellitus, type 2. 5. Hypertension. 6. Coronary artery disease. PLAN: 1. Continue current medications, but replace potassium. 2. Heart healthy 1800-calorie ADA diet. 3. Accu-Cheks with sliding scale coverage. 4. Titrate oxygen. 5. Routine laboratory values. 6. Physical therapy. 7. DVT prophylaxis, he is on warfarin. 8. Dr. Yuliya steele. Job ID: [id number]
[2019-09-23] MEDS: Warfarin Sodium 5 MG TAB PO SCH (17:45)
[2019-09-23] MEDS: Loratadine 10 MG TAB PO SCH (17:45)
[2019-09-24 05:26] LABS: INR-International Normal Ratio 2.3
[2019-09-24 05:34] LABS: Anion Gap 15 mmol/L (10-20); BUN (Urea Nitrogen) 41 mg/dL (8.4-25.7); Calc. Creatinine Clearance 39 mL/min (70-130); Calcium 8.6 mg/dL (7.8-10.44); Carbon Dioxide 27 mmol/L (23-31); Chloride 101 mmol/L (98-107); Estimated GFR-MDRD 29; Glucose 114 mg/dL (83-110); Potassium 3.8 mmol/L (3.5-5.1); Sodium 139 mmol/L (136-145)
[2019-09-24] MEDS: Aspirin 81 mg Enteric Coated Tablet PO SCH (08:23)
[2019-09-24] MEDS: Potassium Chloride 20 MEQ TAB PO SCH (08:24)
[2019-09-24] MEDS: Furosemide 40 MG TAB PO SCH (08:24)
[2019-09-24] MEDS: Alogliptin 25 MG TAB PO SCH (08:24)
[2019-09-24] MEDS: Lisinopril 10 MG TAB PO SCH (08:24)
[2019-09-24] MEDS: Dronedarone HCl 400 MG TAB PO SCH ×2 (08:24→17:28)
[2019-09-24] MEDS: Atorvastatin Calcium 20 MG TAB PO SCH (08:24)
[2019-09-24] MEDS: Eucerin (Mineral Oil/Petrolatum,White) 30 gm Jar TOP SCH ×2 (08:25→20:32)
[2019-09-24] MEDS: Carvedilol 6.25 MG TAB PO SCH ×2 (08:25→20:30)
[2019-09-24] MEDS: Loratadine 10 MG TAB PO SCH (17:29)
[2019-09-24] MEDS: Warfarin Sodium 5 MG TAB PO SCH (17:29)
--- NOTE | 2019-09-24 19:07 | PRG ---
DATE OF SERVICE: 09/24/2019 SUBJECTIVE: Mr. Alfaro is a very pleasant 79-year-old white male, who presented to my office with acute shortness of breath and in atrial fibrillation. He was transferred to [facility], seen by Dr. Kurtz and evaluated and stabilized. He was transferred back to [facility] after about a week for physical therapy and occupational therapy to increase his strength and stamina. Over the weekend, the patient did get out of bed and spend some time with his son sitting up, but he did not have any significant walking spells. This morning, he has already walked. States he did fairly well and walked about 230 feet again. He states he is definitely getting stronger each day. He has no concerns or complaints today. OBJECTIVE: VITAL SIGNS: Today reveal blood pressure 127/78, pulse 87 to 96, respirations 20, O2 saturation 95% on 2 L. GENERAL: This is a well-developed, well-nourished, very pleasant, 79-year-old, white male, in no apparent distress at this time. HEENT: Reveals normocephalic and nontraumatic cranium. Pupils are equally round and reactive. Extraocular movements are intact. Nose and throat are slightly dry, but clear. NECK: Supple without masses, nodes, or bruits. CHEST: Clear to auscultation. No rales, no rhonchi, no wheezes are heard today. HEART: Reveals an irregularly irregular rate and rhythm without murmurs, gallops, or rubs. ABDOMEN: Soft and nontender without organomegaly. Normal bowel sounds noted in all 4 quadrants. No rebound or guarding is noted. : Deferred. EXTREMITIES: Reveal the patient has continued edema at the lower extremities of 1+. His weight today was 194 pounds. It is down from 206 last Tuesday. The patient states he is feeling better, and his oxygenation is better, and his spirometry is much better going all the way up to about 2200 mL volume. LABORATORY DATA: Laboratory reveals INR this morning 2.3. Sodium 139, potassium 3.8, chloride 101, BUN 41, creatinine up from 2.01 yesterday to 2.22 this morning. Sugar is stable. ASSESSMENT: 1. Acute exacerbation of chronic obstructive pulmonary disease. 2. New onset atrial fibrillation, presently rate controlled. 3. Hypertension. 4. Coronary artery disease. 5. Chronic obstructive pulmonary disease. 6. History of recent respiratory failure. 7. Degenerative joint disease. 8. Diabetes, type 2. 9. Mitral regurgitation. 10. Osteoarthritis. 11. Generalized weakness. PLAN: 1. We will decrease his Lasix from 40 b.i.d. to 40 each morning. 2. The patient will continue handheld nebs p.r.n. 3. Continue daily weight on the same standing scale. 4. Monitor the patient for signs and symptoms of CHF. 5. Monitor the patient's diabetes with Accu-Cheks a.c. and at bedtime. 6. Continue to monitor the patient's blood pressure closely and adjust medications as needed. 7. Monitor the patient's respiratory status. 8. Stress ulcer prophylaxis. 9. Decubitus precautions. 10. Continue physical therapy and occupational therapy. 11. Continue INR monitoring. His INR today was 2.3. Job ID: [id number]
[2019-09-25 05:23] LABS: INR-International Normal Ratio 2.4; Prothrombin Time 26.3 SEC (12.0-14.7)
[2019-09-25 05:30] LABS: Anion Gap 16 mmol/L (10-20); BUN (Urea Nitrogen) 45 mg/dL (8.4-25.7); Calc. Creatinine Clearance 29 mL/min (70-130); Calcium 8.3 mg/dL (7.8-10.44); Carbon Dioxide 26 mmol/L (23-31); Chloride 100 mmol/L (98-107); Estimated GFR-MDRD 24; Glucose 111 mg/dL (83-110); Sodium 138 mmol/L (136-145)
[2019-09-25] MEDS: Lisinopril 10 MG TAB PO SCH (09:39)
[2019-09-25] MEDS: Potassium Chloride 20 MEQ TAB PO SCH (09:39)
[2019-09-25] MEDS: Alogliptin 25 MG TAB PO SCH (09:40)
[2019-09-25] MEDS: Dronedarone HCl 400 MG TAB PO SCH ×2 (09:40→17:01)
[2019-09-25] MEDS: Carvedilol 6.25 MG TAB PO SCH ×2 (09:40→21:33)
[2019-09-25] MEDS: Atorvastatin Calcium 20 MG TAB PO SCH (09:41)
[2019-09-25] MEDS: Furosemide 40 MG TAB PO SCH (09:41)
[2019-09-25] MEDS: Aspirin 81 mg Enteric Coated Tablet PO SCH (09:41)
[2019-09-25] MEDS: Eucerin (Mineral Oil/Petrolatum,White) 30 gm Jar TOP SCH ×2 (09:43→21:34)
[2019-09-25] MEDS: Warfarin Sodium 5 MG TAB PO SCH (17:01)
[2019-09-25] MEDS: Loratadine 10 MG TAB PO SCH (17:01)
[2019-09-26 05:52] LABS: INR-International Normal Ratio 2.5; Prothrombin Time 26.9 SEC (12.0-14.7)
[2019-09-26 05:59] LABS: ALT (SGPT) 16 U/L (8-55); AST (SGOT) 23 U/L (5-34); Albumin 2.9 g/dL (3.4-4.8); Alkaline Phosphatase 64 U/L (40-110); Anion Gap 17 mmol/L (10-20); BUN (Urea Nitrogen) 45 mg/dL (8.4-25.7); Bilirubin, Total 0.8 mg/dL (0.2-1.2); Calc. Creatinine Clearance 32 mL/min (70-130); Calcium 8.3 mg/dL (7.8-10.44); Carbon Dioxide 25 mmol/L (23-31); Chloride 100 mmol/L (98-107); Estimated GFR-MDRD 23; Glucose 111 mg/dL (83-110); Protein, Total 5.9 g/dL (5.8-8.1); Sodium 138 mmol/L (136-145)
[2019-09-26 06:02] LABS: #Basophils 0.1 thou/uL (0.0-0.2); #Eosinphils 0.1 thou/uL (0.0-0.7); #Lymphocytes 0.8 thou/uL (1.20-3.40); #Monocytes 0.9 thou/uL (0.11-0.59); #Neutrophils 6.4 thou/uL (1.40-6.50); %Basophils 1.7 % (0.0-1.0); %Eosinophils 0.6 % (0.0-10.0); %Lymphocytes 9.8 % (21.0-51.0); %Monocytes 10.3 % (0.0-10.0); %Neutrophils 77.6 % (42.0-75.0); Hemoglobin 8.1 g/dL (14.0-18.0); Hypochromia MODERATE=16-30 cells (100X) (0-5/hpf); MDiff Complete? YES; Mean Corpuscular HGB CONC 30.4 g/dL (32.0-36.0); Mean Corpuscular Hemoglobin 25.2 pg (27.0-31.0); Mean Corpuscular Volume 82.6 fL (78.0-98.0); Mean Platelet Volume 10.1 fL (7.4-10.4); Microcytosis MODERATE=15-30 cells (100X) (0-5/hpf); Platelet Count 242 thou/uL (130-400); Platelet Morphology Comment Appears Adequate; RBC Distribution Width 19.8 % (11.5-14.5); Red Blood Cell (RBC) Count 3.21 mill/uL (4.70-6.10); White Blood Cell (WBC) Count 8.2 thou/uL (4.8-10.8)
--- NOTE | 2019-09-26 07:20 | PRG ---
DATE OF SERVICE: 09/25/2019 SUBJECTIVE: Mr. Alfaro is a very pleasant 79-year-old white male, who presented to my office in new onset atrial fibrillation with acute shortness of breath. He was transferred to [facility], seen by Dr. Kurtz and evaluated and stabilized. He was transferred to [facility] after about a week of being at the bed. He was transferred here for physical therapy and occupational therapy to increase his strength and stamina. Over the weekend, the patient has had some off and on spells of CHF and acute exacerbation of his COPD. This morning, he continues to walk a bit better and do better with his incentive spirometry. He thinks he is getting little stronger every day. He has no concerns or complaints today. OBJECTIVE: VITAL SIGNS: Today reveal blood pressure this morning 116/64, pulse 87 to 104, respirations 20, O2 saturation 92% to 93% on 2 to 3 L, T-max 99.7. GENERAL: This is a well-developed, well-nourished, very pleasant, tall, skinny 79-year-old white male, in no apparent distress at this time. HEENT: Reveals normocephalic and nontraumatic cranium. Pupils are equal, round, and reactive. Extraocular movements are intact. Nose and throat are slightly dry today. NECK: Supple without masses, nodes, or bruits. CHEST: Clear to auscultation. No rales, rhonchi, wheezes, or cough is heard. HEART: Reveals an irregularly irregular rate and rhythm without murmurs, gallops, or rubs. ABDOMEN: Soft, nontender without organomegaly. Normal bowel sounds are noted in all 4 quadrants. No rebound or guarding is noted today. : Deferred. EXTREMITIES: Reveals the patient continues to have 1 to 2+ edema. The patient's weight yesterday was 194 and the patient's weight today is 223. Obviously that is not correct. The patient states he feels better and is oxygenating better and he is able to get about 2000 mL in his incentive spirometry. ASSESSMENT: 1. Acute exacerbation of chronic obstructive pulmonary disease. 2. New onset atrial fibrillation, presently rate controlled. 3. Hypertension. 4. Coronary artery disease. 5. Chronic obstructive pulmonary disease. 6. History of recent respiratory failure. 7. Degenerative joint disease. 8. Diabetes, type 2. 9. Mitral regurgitation. 10. Osteoarthritis. 11. Generalized weakness. PLAN: 1. We will decrease his Lasix from 40 b.i.d. to 40 each morning since his creatinine has gone up to 2.2. 2. Continue handheld nebs. 3. Continue daily weights on the same standing scale. 4. Monitor the patient for signs and symptoms of CHF. 5. Monitor the patient's diabetes with Accu-Cheks before meals and at bedtime. 6. Continue to monitor the patient's blood pressure closely and adjust medications as needed. 7. Monitor the patient's respiratory status. 8. Stress ulcer prophylaxis. 9. Decubitus precautions. 10. Continue physical therapy and occupational therapy. 11. Continue monitoring the patient's INR. Job ID: [id number]
[2019-09-26] MEDS: Potassium Chloride 20 MEQ TAB PO SCH (08:19)
[2019-09-26] MEDS: Carvedilol 6.25 MG TAB PO SCH ×2 (08:19→20:25)
[2019-09-26] MEDS: Atorvastatin Calcium 20 MG TAB PO SCH (08:19)
[2019-09-26] MEDS: Furosemide 40 MG TAB PO SCH (08:19)
[2019-09-26] MEDS: Aspirin 81 mg Enteric Coated Tablet PO SCH (08:19)
[2019-09-26] MEDS: Dronedarone HCl 400 MG TAB PO SCH ×2 (08:19→16:39)
[2019-09-26] MEDS: Alogliptin 25 MG TAB PO SCH (08:19)
[2019-09-26] MEDS: Eucerin (Mineral Oil/Petrolatum,White) 30 gm Jar TOP SCH ×2 (08:20→20:26)
[2019-09-26] MEDS: Lisinopril 10 MG TAB PO SCH (08:20)
--- NOTE | 2019-09-26 11:54 | PRG ---
DATE OF SERVICE: 09/26/2019 SUBJECTIVE: Mr. Alfaro is a well-developed, well-nourished 79-year-old white male, who was seen in my office with new onset atrial fibrillation and CHF. He was transferred to [facility], seen by Dr. John Rajput. He treated medically and conservatively. He was stabilized and transferred back to [facility] for physical therapy, occupational therapy to increase his strength and stamina. The patient states that he is doing well and did not need any breathing treatments last night. He continues to do about 1999 with his incentive spirometry. LABORATORY DATA: Lab work done today revealed his creatinine still slightly elevated at 2.71. Otherwise, his labs were fairly decent. His INR was 2.5. His BNP is elevated. It is gone from 1692 to 2126. His sugars are under fairly good control. PHYSICAL EXAMINATION: GENERAL: This is a well-developed, well-nourished, very pleasant, tall, skinny 79-year-old white male, in no apparent distress at this time. HEENT: Reveals normocephalic and nontraumatic cranium. Pupils are equal, round, and reactive. Extraocular movements are intact. Nose and throat are dry, but clear. NECK: Supple without masses, nodes, or bruits. CHEST: Clear to auscultation. No rales, rhonchi, wheezes, or cough is heard. HEART: Reveals an irregularly irregular rate and rhythm without murmurs, gallops, or rubs. ABDOMEN: Soft and nontender without organomegaly. Normal bowel sounds are noted in all 4 quadrants. No rebound or guarding is noted. : Deferred. EXTREMITIES: Reveal no clubbing or cyanosis. The patient does have 1 to 2+ edema. His weight is not available yet this morning. The patient states he feels better and feels stronger. He is walking better and less problems with his balance. ASSESSMENT: 1. Acute exacerbation of chronic obstructive pulmonary disease. 2. New onset atrial fibrillation, presently rate controlled. 3. Hypertension. 4. Coronary artery disease. 5. Chronic obstructive pulmonary disease. 6. History of recent respiratory failure. 7. Degenerative joint disease. 8. Diabetes, type 2. 9. Mitral regurgitation. 10. Osteoarthritis. 11. Generalized weakness. PLAN: 1. Continue to have the patient with Lasix 40 mg in the morning. We will decrease that to 20 mg. 2. Repeat basic metabolic panel in the morning. 3. Continue handheld nebs as needed. 4. Continue daily weights. 5. Continue to monitor the patient for signs and symptoms of CHF. 6. Continue to monitor the patient's diabetes with Accu-Cheks a.c. and at bedtime. 7. Continue to monitor the patient's blood pressure closely and adjust medications. 8. Monitor the patient's respiratory status. 9. Stress ulcer prophylaxis. 10. Decubitus precautions. 11. Continue PT and OT. 12. Continue monitoring the patient's INR. Job ID: [id number]
[2019-09-26] MEDS: Loratadine 10 MG TAB PO SCH (16:39)
[2019-09-26] MEDS: Warfarin Sodium 5 MG TAB PO SCH (16:39)
[2019-09-27 05:34] LABS: INR-International Normal Ratio 2.3; Prothrombin Time 25.4 SEC (12.0-14.7)
[2019-09-27 05:42] LABS: Anion Gap 18 mmol/L (10-20); BUN (Urea Nitrogen) 49 mg/dL (8.4-25.7); Calc. Creatinine Clearance 31 mL/min (70-130); Calcium 8.5 mg/dL (7.8-10.44); Carbon Dioxide 25 mmol/L (23-31); Chloride 99 mmol/L (98-107); Estimated GFR-MDRD 22; Glucose 107 mg/dL (83-110); Potassium 4.3 mmol/L (3.5-5.1); Sodium 138 mmol/L (136-145)
[2019-09-27] MEDS: Dronedarone HCl 400 MG TAB PO SCH ×2 (08:20→16:34)
[2019-09-27] MEDS: Potassium Chloride 20 MEQ TAB PO SCH (08:20)
[2019-09-27] MEDS: Alogliptin 25 MG TAB PO SCH (08:20)
[2019-09-27] MEDS: Furosemide 20 MG TAB PO SCH (08:20)
[2019-09-27] MEDS: Aspirin 81 mg Enteric Coated Tablet PO SCH (08:21)
[2019-09-27] MEDS: Eucerin (Mineral Oil/Petrolatum,White) 30 gm Jar TOP SCH ×2 (08:21→20:48)
[2019-09-27] MEDS: Atorvastatin Calcium 20 MG TAB PO SCH (08:21)
[2019-09-27] MEDS: Lisinopril 10 MG TAB PO SCH (08:21)
[2019-09-27] MEDS: Carvedilol 6.25 MG TAB PO SCH ×2 (08:21→20:48)
[2019-09-27] MEDS: Loratadine 10 MG TAB PO SCH (16:34)
[2019-09-27] MEDS: Warfarin Sodium 5 MG TAB PO SCH (16:34)
--- NOTE | 2019-09-27 18:52 | PRG ---
DATE OF SERVICE: 09/27/2019 SUBJECTIVE: Mr. Alfaro is a very pleasant 79-year-old white male, who was seen initially in my office with acute new onset atrial fibrillation and congestive heart failure. He was transferred to [facility], was seen by Dr. John Rajput. Treated medically, conservatively, and was transferred to [facility] for physical therapy and occupational therapy. The patient over the last several days, has had increasing and fluctuating BNPs and increasing creatinine. We did cut his Lasix down, but he did have some congestive heart failure and some acute exacerbations of his COPD. I did talk with Dr. John Rajput today and he requested stopping his lisinopril and starting him on Entresto b.i.d. starting on Tuesday. We will repeat his labs tomorrow morning. PHYSICAL EXAMINATION: GENERAL: This is a well-developed, well-nourished, very pleasant, tall, skinny, 79-year-old white male, in no apparent distress at this time. HEENT: Reveals normocephalic and nontraumatic cranium. Pupils are equally round and reactive. Extraocular movements are intact. Nose and throat are dry. NECK: Supple without masses, nodes, or bruits. CHEST: Clear to auscultation. No rales, rhonchi, wheezes, or cough is noted. HEART: Reveals an irregularly irregular rate and rhythm without murmurs, gallops, or rubs. ABDOMEN: Soft, nontender without organomegaly. Normal bowel sounds are noted in all 4 quadrants. No rebound or guarding is noted. : Deferred. EXTREMITIES: Reveal no clubbing or cyanosis. The patient continues to have 2+ edema. The patient states he is feeling better and has no shortness of breath or coughing last night. Nurses called me this afternoon and stated that the patient while in therapy dropped his blood pressure and had a syncopal episode, but did not lose consciousness. They put him to bed and he did better. ASSESSMENT: 1. Acute exacerbation of chronic obstructive pulmonary disease. 2. New onset atrial fibrillation, presently rate controlled. 3. Hypertension. 4. Coronary artery disease. 5. Chronic obstructive pulmonary disease. 6. Degenerative joint disease. 7. Diabetes, type 2. 8. Mitral regurgitation. 9. Osteoarthritis. 10. Generalized weakness. PLAN: 1. We will decrease the patient's Lasix to 20 mg each morning and continue that. 2. We will stop lisinopril. 3. Will start Entresto b.i.d. on Tuesday per Dr. John Rajput's request. 4. Continue to follow the patient's electrolytes over the weekend. 5. Continue handheld nebs p.r.n. 6. Continue daily weights. 7. Continue to monitor the patient for signs and symptoms of CHF. 8. Monitor the patient's diabetes with Accu-Cheks before meals and at bedtime. 9. Monitor the patient's blood pressure closely and adjust medications as needed. 10. Monitor the patient's respiratory status. 11. Stress ulcer prophylaxis. 12. Decubitus precautions. 13. Continue to monitor the patient's INR. 14. Continue physical therapy and occupational therapy. Job ID: [id number]
[2019-09-28] MEDS: Alogliptin 25 MG TAB PO SCH (09:13)
[2019-09-28] MEDS: Carvedilol 6.25 MG TAB PO SCH ×2 (09:13→20:29)
[2019-09-28] MEDS: Atorvastatin Calcium 20 MG TAB PO SCH (09:13)
[2019-09-28] MEDS: Aspirin 81 mg Enteric Coated Tablet PO SCH (09:13)
[2019-09-28] MEDS: Potassium Chloride 20 MEQ TAB PO SCH (09:13)
[2019-09-28] MEDS: Eucerin (Mineral Oil/Petrolatum,White) 30 gm Jar TOP SCH ×2 (09:17→20:30)
[2019-09-28] MEDS: Dronedarone HCl 400 MG TAB PO SCH ×2 (09:17→17:40)
[2019-09-28] MEDS: Furosemide 20 MG TAB PO SCH (09:18)
--- NOTE | 2019-09-28 13:54 | PRG ---
DATE OF SERVICE: 09/28/2019 SUBJECTIVE: Mr. Alfaro is a very pleasant 79-year-old white male, initially seen in my office with new onset of atrial fibrillation and CHF. He was transferred to [facility] by his son, where he was admitted and treated by Dr. Rajput. He was treated conservatively and was transferred to [facility] for physical therapy and occupational therapy to increase his strength and stamina. The patient has been doing fairly well, but has had acute exacerbation of his COPD and his CHF. We did diurese him, but then he had some acute on chronic renal insufficiency. His last creatinine was 2.79 and expected to be improving today. I did talk with Dr. Rajput and he requested stopping his lisinopril and starting him on Entreo b.i.d. starting on Tuesday. Therapy did stop in the melgar today and states every time he gets up and walks, his systolic is in the upper 80s. I did discuss with him that we stopped his lisinopril yesterday and that it will take a little while to get out of his system. We will have labs done tomorrow morning. PHYSICAL EXAMINATION: VITAL SIGNS: This morning reveal blood pressure 113/60. GENERAL: This is a well-developed, well-nourished, very pleasant, 79-year-old white male, who states he had a couple of episodes of feeling really weak and dropping his blood pressure while he was walking today. Physical Therapy and Occupational Therapy were very observing and immediately had him sit down, checked his blood pressure, noting that his systolics were in the 80s. We did stop his lisinopril yesterday evening. HEENT: Reveal normocephalic and nontraumatic cranium. Pupils are equal, round, and reactive. Extraocular movements are intact. Nose and throat are slightly dry. NECK: Supple without masses, nodes, or bruits. CHEST: Clear to auscultation. No rales, rhonchi, wheezes, or cough is noted. HEART: Reveals an irregularly irregular rate and rhythm without murmurs, gallops, or rubs. ABDOMEN: Soft, nontender without organomegaly. Normal bowel sounds are noted in all 4 quadrants. No rebound or guarding is noted. : Deferred. EXTREMITIES: Reveal no clubbing, cyanosis, or edema. The patient continues again to have 2+ edema. The patient states he feels better when he is sitting down now. He has not had as much shortness of breath as he had at the beginning of the week. ASSESSMENT: 1. Acute exacerbation of congestive heart failure. 2. Acute exacerbation of chronic obstructive pulmonary disease. 3. New onset atrial fibrillation, presently rate controlled. 4. Hypertension. 5. Coronary artery disease. 6. Chronic obstructive pulmonary disease. 7. Degenerative joint disease. 8. Diabetes, type 2. 9. Mitral regurgitation. 10. Osteoarthritis. 11. Generalized weakness. PLAN: 1. The patient's lisinopril was stopped yesterday. 2. The patient will get started on Entresto on Tuesday per Dr. John Rajput's request. 3. Continue Lasix 20 mg each morning. 4. Repeat electrolytes tomorrow morning and follow his creatinine, it should be coming down, it was 2.79 yesterday. 5. Continue daily weights. 6. Continue handheld nebs p.r.n. 7. Continue to monitor the patient for signs and symptoms of CHF. 8. Monitor the patient's diabetes with Accu-Cheks before meals and at bedtime. 9. Monitor the patient's blood pressure closely. 10. Monitor the patient's respiratory status. 11. Stress ulcer prophylaxis. 12. Continue to monitor the patient's INR. 13. Continue physical therapy and occupational therapy. Job ID: [id number]
[2019-09-28] MEDS: Warfarin Sodium 5 MG TAB PO SCH (17:41)
[2019-09-28] MEDS: Loratadine 10 MG TAB PO SCH (17:42)
[2019-09-29 05:44] LABS: INR-International Normal Ratio 3.2; Prothrombin Time 32.5 SEC (12.0-14.7)
[2019-09-29 05:58] LABS: #Basophils 0.1 thou/uL (0.0-0.2); #Eosinphils 0.2 thou/uL (0.0-0.7); #Lymphocytes 0.7 thou/uL (1.20-3.40); #Monocytes 0.7 thou/uL (0.11-0.59); #Neutrophils 4.3 thou/uL (1.40-6.50); %Basophils 1.7 % (0.0-1.0); %Eosinophils 3.7 % (0.0-10.0); %Lymphocytes 11.5 % (21.0-51.0); %Monocytes 11.2 % (0.0-10.0); %Neutrophils 71.9 % (42.0-75.0); Anisocytosis SLIGHT = 6-15 cells (100X) (0-5/hpf); Hemoglobin 8.3 g/dL (14.0-18.0); Hypochromia MODERATE=16-30 cells (100X) (0-5/hpf); MDiff Complete? YES; Mean Corpuscular HGB CONC 30.1 g/dL (32.0-36.0); Mean Corpuscular Hemoglobin 24.9 pg (27.0-31.0); Mean Corpuscular Volume 82.7 fL (78.0-98.0); Mean Platelet Volume 8.7 fL (7.4-10.4); Platelet Count 240 thou/uL (130-400); Platelet Morphology Comment Appears Adequate; Red Blood Cell (RBC) Count 3.32 mill/uL (4.70-6.10)
[2019-09-29 06:18] LABS: ALT (SGPT) 23 U/L (8-55); AST (SGOT) 38 U/L (5-34); Alkaline Phosphatase 77 U/L (40-110); Anion Gap 16 mmol/L (10-20); BUN (Urea Nitrogen) 53 mg/dL (8.4-25.7); Bilirubin, Total 0.6 mg/dL (0.2-1.2); Calc. Creatinine Clearance 30 mL/min (70-130); Calcium 8.4 mg/dL (7.8-10.44); Carbon Dioxide 25 mmol/L (23-31); Chloride 101 mmol/L (98-107); Estimated GFR-MDRD 26; Globulin 3.3 g/dL (2.4-3.5); Glucose 106 mg/dL (83-110); Potassium 4.8 mmol/L (3.5-5.1); Protein, Total 6.3 g/dL (5.8-8.1); Sodium 137 mmol/L (136-145)
[2019-09-29] MEDS: Carvedilol 6.25 MG TAB PO SCH ×2 (08:38→20:39)
[2019-09-29] MEDS: Alogliptin 25 MG TAB PO SCH (08:38)
[2019-09-29] MEDS: Dronedarone HCl 400 MG TAB PO SCH ×2 (08:39→17:36)
[2019-09-29] MEDS: Aspirin 81 mg Enteric Coated Tablet PO SCH (08:39)
[2019-09-29] MEDS: Eucerin (Mineral Oil/Petrolatum,White) 30 gm Jar TOP SCH ×2 (08:39→20:44)
[2019-09-29] MEDS: Potassium Chloride 20 MEQ TAB PO SCH (08:39)
[2019-09-29] MEDS: Sacubitril 24.5 MG/Valsartan 25.5 MG TABLET PO SCH ×2 (08:39→20:39)
[2019-09-29] MEDS: Atorvastatin Calcium 20 MG TAB PO SCH (08:39)
[2019-09-29] MEDS: Furosemide 20 MG TAB PO SCH (08:39)
[2019-09-29] MEDS: Warfarin Sodium 5 MG TAB PO SCH (17:36)
[2019-09-29] MEDS: Loratadine 10 MG TAB PO SCH (17:36)
[2019-09-30 05:20] LABS: INR-International Normal Ratio 3.8
[2019-09-30 05:27] LABS: Anion Gap 15 mmol/L (10-20); BUN (Urea Nitrogen) 54 mg/dL (8.4-25.7); Calc. Creatinine Clearance 34 mL/min (70-130); Calcium 7.8 mg/dL (7.8-10.44); Carbon Dioxide 24 mmol/L (23-31); Chloride 102 mmol/L (98-107); Estimated GFR-MDRD 24; Glucose 98 mg/dL (83-110); Potassium 4.3 mmol/L (3.5-5.1); Sodium 137 mmol/L (136-145)
[2019-09-30] MEDS: Potassium Chloride 20 MEQ TAB PO SCH (08:25)
[2019-09-30] MEDS: Furosemide 20 MG TAB PO SCH (08:25)
[2019-09-30] MEDS: Dronedarone HCl 400 MG TAB PO SCH ×2 (08:25→17:14)
[2019-09-30] MEDS: Atorvastatin Calcium 20 MG TAB PO SCH (08:26)
[2019-09-30] MEDS: Alogliptin 25 MG TAB PO SCH (08:26)
[2019-09-30] MEDS: Aspirin 81 mg Enteric Coated Tablet PO SCH (08:26)
[2019-09-30] MEDS: Carvedilol 6.25 MG TAB PO SCH ×2 (08:27→20:42)
[2019-09-30] MEDS: Sacubitril 24.5 MG/Valsartan 25.5 MG TABLET PO SCH ×2 (08:28→20:42)
[2019-09-30] MEDS: Eucerin (Mineral Oil/Petrolatum,White) 30 gm Jar TOP SCH ×2 (08:29→20:42)
[2019-09-30] MEDS: Loratadine 10 MG TAB PO SCH (17:14)
--- NOTE | 2019-09-30 22:36 | PRG ---
DATE OF SERVICE: 09/30/2019 The patient of Arnaud Dwyer MD. SUBJECTIVE: The patient feels well, sitting in the bed. States that he did have an episode of dizziness and lightheadedness, taken a shower today and had to be taken back to bed. OBJECTIVE: VITAL SIGNS: His temperature is 97, pulse 85, blood pressure 108/63, respirations 20, O2 saturations 95% on 3 L. LUNGS: Clear. CARDIAC: Shows irregular rhythm. LABORATORY DATA: Shows Accu-Cheks ranged 104 to 127. Sodium 137, potassium 4.3, chloride 102, bicarb 24, BUN 54, creatinine 2.56, glucose 98. PT/INR is supratherapeutic at 3.8. ASSESSMENT: 1. Supratherapeutic INR on 5 mg of warfarin daily. We will decrease to 4 mg daily. 2. Persistent orthostatic hypotension, on furosemide, Entresto, and carvedilol. We will discontinue furosemide and monitor. 3. Persistent chronic kidney disease stage 4, with no improvement with discontinuation of lisinopril. We will monitor closely off furosemide. Job ID: [id number]
[2019-10-01 05:24] LABS: INR-International Normal Ratio 3.4; Prothrombin Time 34.2 SEC (12.0-14.7)
[2019-10-01 05:31] LABS: Anion Gap 17 mmol/L (10-20); BUN (Urea Nitrogen) 56 mg/dL (8.4-25.7); Calc. Creatinine Clearance 28 mL/min (70-130); Carbon Dioxide 21 mmol/L (23-31); Chloride 101 mmol/L (98-107); Estimated GFR-MDRD 19; Glucose 98 mg/dL (83-110); Potassium 4.9 mmol/L (3.5-5.1); Sodium 134 mmol/L (136-145)
--- NOTE | 2019-10-01 08:00 | PRG ---
DATE OF SERVICE: 09/29/2019 SUBJECTIVE: The patient is sitting in a chair, watching TV. States he feels much better with apparent improvement from his recent exacerbation of his CHF, COPD. His renal function did deteriorate with diuresis, but now is improving as he has had his MICHELLE inhibitor stopped and we will start on Entresto today. OBJECTIVE: VITAL SIGNS: Show his blood pressure is 138/77, temperature is 97, pulse 84, respirations 20, O2 sats 97% on 3 L. LUNGS: Clear with no rales, rhonchi, rubs or wheezes. CARDIAC EXAMINATION: Shows irregularly irregular rhythm with no gallops or murmurs. ABDOMEN: Soft and nontender. SKIN/EXTREMITIES: Display 1 to 2+ edema peripherally. LABORATORY DATA: Laboratories done this morning showed a white count of 6000, hematocrit 27, hemoglobin 8.3. Sodium is 137, potassium 4.8, chloride 101, bicarb 25, BUN 53, creatinine 2.43. BNP is 1803, calcium 8.4, total bilirubin 0.6, AST 38. Accu-Cheks range 104, 142. ASSESSMENT: 1. Atrial fibrillation, new onset, rate controlled. 2. Exacerbation of congestive heart failure with atrial fibrillation with elevated BNP, dyspnea on exertion, and edema. 3. Orthostatic hypotension, on lisinopril with increased edema. 4. Chronic kidney disease stage 4 with recent exacerbation with diuresis, but with slight improvement with discontinuation of lisinopril. PLAN: 1. Start Entresto today and monitor renal function. . 2. Continue gentle diuresis with furosemide 20 mg daily. Monitor edema. 3. Continue carvedilol 12.5 twice daily for rate control of atrial fibrillation and warfarin 5 mg daily for anticoagulation, but will decrease dose as PT/INR is up to 32 and 3.2. . 4. Continue PT and OT. 5. Continue to monitor vital signs with therapy, observing for orthostatic hypotension. Job ID: [id number]
[2019-10-01] MEDS: Potassium Chloride 20 MEQ TAB PO SCH (08:36)
[2019-10-01] MEDS: Atorvastatin Calcium 20 MG TAB PO SCH (08:36)
[2019-10-01] MEDS: Alogliptin 25 MG TAB PO SCH (08:36)
[2019-10-01] MEDS: Dronedarone HCl 400 MG TAB PO SCH ×2 (08:36→16:58)
[2019-10-01] MEDS: Carvedilol 6.25 MG TAB PO SCH (08:36)
[2019-10-01] MEDS: Aspirin 81 mg Enteric Coated Tablet PO SCH (08:36)
[2019-10-01] MEDS: Sacubitril 24.5 MG/Valsartan 25.5 MG TABLET PO SCH (08:37)
[2019-10-01] MEDS: Eucerin (Mineral Oil/Petrolatum,White) 30 gm Jar TOP SCH ×2 (08:37→20:18)
[2019-10-01 10:27] VITALS: BMI 29.5
[2019-10-01] MEDS: Loratadine 10 MG TAB PO SCH (16:58)
[2019-10-01] MEDS ORDERED: Warfarin Sodium 5 MG TAB PO SCH (17:00)
[2019-10-02 05:58] LABS: Anion Gap 18 mmol/L (10-20); BUN (Urea Nitrogen) 58 mg/dL (8.4-25.7); Calc. Creatinine Clearance 25 mL/min (70-130); Calcium 8.3 mg/dL (7.8-10.44); Carbon Dioxide 22 mmol/L (23-31); Chloride 100 mmol/L (98-107); Estimated GFR-MDRD 17; Glucose 102 mg/dL (83-110); Potassium 5.1 mmol/L (3.5-5.1); Sodium 135 mmol/L (136-145)
[2019-10-02 06:00] LABS: INR-International Normal Ratio 2.4; Prothrombin Time 26.2 SEC (12.0-14.7)
[2019-10-02] MEDS ORDERED: Carvedilol 6.25 MG TAB PO SCH (08:00)
[2019-10-02] MEDS: Potassium Chloride 20 MEQ TAB PO SCH (08:30)
[2019-10-02] MEDS: Dronedarone HCl 400 MG TAB PO SCH (08:30)
[2019-10-02] MEDS: Alogliptin 25 MG TAB PO SCH (08:30)
[2019-10-02] MEDS: Atorvastatin Calcium 20 MG TAB PO SCH (08:30)
[2019-10-02] MEDS: Aspirin 81 mg Enteric Coated Tablet PO SCH (08:30)
[2019-10-02] MEDS: Eucerin (Mineral Oil/Petrolatum,White) 30 gm Jar TOP SCH (08:31)
--- NOTE | 2019-10-02 09:30 | PRG ---
DATE OF SERVICE: 10/01/2019 SUBJECTIVE: Mr. Alfaro is a 79-year-old white male, seen in my office with new onset atrial fibrillation and CHF. He was transferred to [facility] by his son where he was admitted and treated by Dr. John Rajput. He was treated conservatively and was transferred to [facility] for PT and OT to increase his strength and stamina. The patient has done fairly well with PT and OT, but he has had acute exacerbation of his mild COPD and his CHF. We did diurese him, and his acute on chronic renal insufficiency went up. He was stable last week with a creatinine 2.79, but over the weekend, it went up to 3.18. He is off his Lasix at this time. His lisinopril has been stopped. He is on Entresto 24-26 b.i.d. since Tuesday. He did have lab work this morning with a creatinine elevated at 3.18, and we will repeat it tomorrow again. His creatinine was down to 2.4 last week. PHYSICAL EXAMINATION: VITAL SIGNS: Today reveal blood pressure low, 84/56, 81/52, and 84/50. High of the day was 108/68. GENERAL: This is a well-developed, well-nourished, pleasant white male who states he does not feel bad when his blood pressure is low and I see showering or really exercising. HEENT: Reveals normocephalic and nontraumatic cranium. The pupils are equally round and reactive. Extraocular movements are intact. Nose and throat are slightly dry. NECK: Supple without masses, nodes, or bruits. CHEST: Clear to auscultation. No rales, rhonchi, wheezes are heard. No cough today. HEART: Reveals a regular rate and rhythm without murmurs, gallops, or rubs. ABDOMEN: Soft, nontender without organomegaly. Normal bowel sounds are noted. No rebound or guarding is noted. : Deferred. EXTREMITIES: Reveal no clubbing, cyanosis, or edema. The patient continues to have 2+ edema. ASSESSMENT: 1. Acute on chronic renal insufficiency. 2. Acute exacerbation of chronic obstructive pulmonary disease. 3. Acute exacerbation of congestive heart failure. 4. New onset atrial fibrillation, presently rate controlled. 5. Hypertension. 6. Coronary artery disease. 7. Chronic obstructive pulmonary disease. 8. Degenerative joint disease. 9. Diabetes. 10. Mitral regurgitation. 11. Osteoarthritis. 12. Generalized weakness. PLAN: 1. The patient's lisinopril has already been stopped. 2. The patient is on Entresto, that started Tuesday per Dr. Wiggins request. 3. Lasix has been stopped over the weekend by Dr. Poole. 4. Creatinine is increased to 3.18 today. 5. The patient's weight is fluctuating because of irregular scales but is increasng 1 lb daily. 6. Continue handheld nebs p.r.n. 7. Monitor the patient's signs and symptoms of CHF. 8. Monitor the patient's diabetes with Accu-Cheks. 9. Monitor the patient's blood pressure which has been low. We will most likely cut his carvedilol down. 10. Monitor the patient's respiratory status. 11. Stress ulcer prophylaxis. 12. Continue to monitor the patient's INR. 13. Physical Therapy and Occupational Therapy. 14. Will stop Entresto secondary to low BP (Discussed with Dr Rajput) 15. Consider Nephrology consult (Dr Perry) transfer back to [facility] if not improving. Job ID: [id number] [facility]
[2019-10-02 12:04] VITALS: TEMP 97.3
[2019-10-02 12:54] VITALS: BP 117/65
[2019-10-02] MEDS ORDERED: Warfarin Sodium 2 MG TAB PO SCH (17:00)
--- NOTE | 2019-10-03 00:44 | DIS ---
DATE OF ADMISSION: 09/12/2019 DATE OF DISCHARGE: 10/02/2019 HISTORY OF PRESENT ILLNESS: Mr. Alfaro is a 79-year-old white male, who was seen in my office initially with a new onset of atrial fibrillation and CHF. He was transferred to [facility], where he was admitted and treated for new onset CHF. He actually was stabilized and did very well and was transferred to [facility] because of extreme weakness. He did fairly well with PT and OT and was progressing until he had acute exacerbation of his CHF. He was treated with Lasix and did fairly well and as we decreased his diuresis, he returned with an episode of exacerbation of his COPD. Over the weekend, his creatinine went from 2.[address] Poole stopped his Lasix and on Tuesday morning, his creatinine was 3.18. We did stop his Entresto because he is becoming hypertensive. This morning, actually his creatinine was 3.50. His blood pressure did come up to 120s over 82. During this time also, his BNP went from 1600 to 1800 yesterday and to 2039 this morning. The patient seems to be in cardiorenal syndrome with both his heart and his kidneys deteriorating. I talked with Dr. John Rajput, Dr. Perry and Dr. Schmitt about transferring the patient to [facility] so they could adjust his medications and hopefully turn around this syndrome. The patient was transferred to the emergency room and I did talk to the emergency room physician. The patient will be hopefully admitted when a bed is available and aggressively treated. LABORATORY DATA: As reported earlier, the patient's laboratory included white count was 6,000, hemoglobin 8.3, hematocrit 27.4, along with a platelet count of 240,000. The patient's sodium was 135, potassium 5.1 with a BUN of 58, creatinine 3.50, GFR estimated by MDRD at 17. The patient's glucose was 102 this morning. The patient's BNP has increased to 2039. PHYSICAL EXAMINATION: VITAL SIGNS: This morning reveal blood pressure 112/58, pulse 94 to 97, respirations 18, O2 saturation 96% on 3 to 4 L, T-max 97.8. GENERAL: This is a well-developed, well-nourished, pleasant white male, who states he feels pretty stable and occasionally has some shortness of breath. He also states he feels weak because every time he gets up, his blood pressure drops. HEENT: Reveals normocephalic, nontraumatic cranium. Pupils are equal, round, and reactive. Extraocular movements are intact. Nose and throat are slightly dry, but clear. NECK: Supple without masses, nodes, or bruits. CHEST: Clear to auscultation. Fine crackles are noted in right base. No wheezes are heard. No cough is noted today. HEART: Reveals an irregular rate and rhythm without murmurs, gallops, or rubs. Pulse is stable and rate controlled. ABDOMEN: Soft, nontender without organomegaly. Normal bowel sounds noted in all 4 quadrants. No rebound or guarding is noted. : Deferred. EXTREMITIES: The patient have no clubbing and no cyanosis, but he has 2 to 3+ edema I think it was all the way up to his thighs. ASSESSMENT: 1. Acute on chronic renal insufficiency. 2. Acute exacerbation of congestive heart failure. 3. Chronic obstructive pulmonary disease. 4. Atrial fibrillation, presently rate controlled. 5. Hypertension. 6. Coronary artery disease. 7. Degenerative joint disease. 8. Diabetes. 9. Mitral regurgitation. 10. Osteoarthritis. 11. Cardiorenal syndrome. 12. Generalized weakness. PLAN: 1. The patient's Entresto and lisinopril both have been stopped. 2. The patient had his Lasix stopped over the weekend. 3. The patient has increased to 3.5 this morning. 4. The patient continues to increase his weight about 1 to 1.5 pounds per day and is up 8 pounds in the last 6 days. 5. Continue handheld nebs. 6. Continue to monitor the patient closely for signs and symptoms of acute CHF. 7. Monitor the patient's diabetes with Accu-Cheks. 8. Monitor the patient's blood pressure closely and adjust medications as needed. 9. The patient is being moved to a higher level of care hospital. 10. The patient will be seen in consultation by his supervisor production department, Dr. John Rajput. 11. The patient will be seen in consultation by Nephrology, Dr. Perry. 12. Continue to monitor the patient's INR because he is on Coumadin. 13. Continue physical therapy and occupational therapy. DISCHARGE MEDICATIONS: The patient's present medications and discharge medications include the followin. DuoNebs q.4 hours p.r.n. 2. Alogliptin 25 mg daily. 3. Aspirin 81 mg daily. 4. Lipitor 20 mg daily. 5. Carvedilol 6.25 mg b.i.d. 6. Multaq 400 mg b.i.d. 7. Loratadine 10 mg every evening. 8. Nitroglycerin p.r.n. 9. Potassium has been stopped. 10. Coumadin 4 mg daily. Job ID: [id number]
== END 2019-10-02 12:50 | disposition short-term general hospital (02) | DRG 947 ==
LOC: NAV ACUTE 15:51
PROVIDERS: ADMIT Family Medicine; ATTEND Family Medicine
DX: R53.1 Weakness (principal); J96.01 Acute respiratory failure with hypoxia; I50.23 Acute on chronic systolic (congestive) heart failure; I13.0 Hypertensive heart and chronic kidney disease with heart failure and stage 1 through stage 4 chronic kidney disease, or unspecified chronic kidney disease; J44.1 Chronic obstructive pulmonary disease with (acute) exacerbation; N18.4 Chronic kidney disease, stage 4 (severe); I25.10 Atherosclerotic heart disease of native coronary artery without angina pectoris; E78.5 Hyperlipidemia, unspecified; M19.90 Unspecified osteoarthritis, unspecified site; Z95.1 Presence of aortocoronary bypass graft; Z82.49 Family history of ischemic heart disease and other diseases of the circulatory system; Z81.8 Family history of other mental and behavioral disorders; E11.9 Type 2 diabetes mellitus without complications; E11.22 Type 2 diabetes mellitus with diabetic chronic kidney disease; I48.91 Unspecified atrial fibrillation; N28.9 Disorder of kidney and ureter, unspecified; D64.9 Anemia, unspecified; Z79.01 Long term (current) use of anticoagulants; I34.0 Nonrheumatic mitral (valve) insufficiency; I95.1 Orthostatic hypotension
CPT/HCPCS: 36415; 36416; 71045; 80048; 80053; 82274; 83880; 84134; 85025; 85610; 94640; J1940; J7620

== ENCOUNTER 2019-10-09 10:53 | Inpatient (IN) | payer MEDICARE, OTHER ==
[2019-10-09] MEDS ORDERED: Nitroglycerin 0.4 MG TAB (25 Tab Bottle) SL PRN (19:23)
[2019-10-09] MEDS ORDERED: Acetaminophen 325 MG TAB PO PRN (19:26)
[2019-10-09] MEDS ORDERED: Dextrose 5% in Water 1,000 ML IV PRN (19:29)
[2019-10-09] MEDS ORDERED: Dextrose 50% Abboject 50 ML SYRINGE IVP PRN (19:32)
[2019-10-09 20:43] LABS: INR-International Normal Ratio 1.3; Prothrombin Time 16.2 SEC (12.0-14.7)
[2019-10-09] MEDS: Atorvastatin Calcium 20 MG TAB PO SCH (21:15)
[2019-10-09] MEDS: Carvedilol 3.125 MG TAB PO SCH (21:15)
[2019-10-09] MEDS: Docusate 100 MG CAP PO SCH (21:16)
[2019-10-09] MEDS: Cephalexin 500 MG CAP PO SCH (21:16)
[2019-10-09] MEDS: Sacubitril 24.5 MG/Valsartan 25.5 MG TABLET PO SCH (21:16)
[2019-10-09] MEDS: Tamsulosin HCl 0.4 MG CAP PO SCH (21:16)
[2019-10-09] MEDS ORDERED: Warfarin Sodium 5 MG TAB PO SCH (21:30)
--- NOTE | 2019-10-10 03:16 | HP ---
HISTORY OF PRESENT ILLNESS: Mr. Alfaro is a very pleasant well-developed well-nourished 79-year-old white male previously here at [facility] and had to be discharged emergently on 10/02/2019. He had developed increasing congestive heart failure and increasing renal insufficiency. He was transferred to [facility], where he was found to have significant obstructive uropathy. He drained about 4.5 L of urine which was noted to be bloody. He was placed in the intensive care unit and continue to be diuresed. After his diuresis, his kidney function and his cardiac function significantly improved. We have stopped his Entresto, because of his hypotensive problems. His creatinine had increased to 3.50. The patient was kept at [facility] for 1 week and now transferred back to [facility] for physical therapy and occupational therapy, because he is still weak. PAST MEDICAL HISTORY: 1. Significant for hypertension. 2. Type 2 diabetes. 3. Coronary artery disease, status post CABG. 4. Osteoarthritis. 5. Hyperlipidemia. 6. Chronic obstructive pulmonary disease. 7. Mitral regurgitation. 8. Degenerative joint disease. 9. Congestive heart failure. PAST SURGICAL HISTORY: 1. CABG by Dr. Cho in 2000. 2. Mitral valve replacement by Dr. Ramirez in [place] 2003. 3. Cardiac cath by Dr. Rajput in 2000. 4. Left total knee replacement in 2007. 5. Left eye cataract extraction by Dr. Baldwin in 2008. 6. Right eye cataract extraction by Dr. Baldwin in 2008. FAMILY HISTORY: Reveals the patient's mother had heart disease. The patient's father had Alzheimer disease. The patient had one brother, of lung cancer. The patient had one sister of colon cancer. Patient with 2 brothers, 7 sisters and 2 sons. SOCIAL HISTORY: Reveals the patient does not smoke and does not drink. His spouse has been . He has 2 children, both boys. ALLERGIES: REVEALS THE PATIENT HAS NO KNOWN DRUG ALLERGIES. REVIEW OF SYSTEMS: GENERAL: Reveals the patient denies fever, chills, night sweats. He does have some extreme fatigue. HEENT: The patient denies any vision problems, hearing problems, head injuries or headaches. RESPIRATORY: The patient denies cough, congestion, wheezing, shortness of breath with exertion. CARDIOVASCULAR: The patient denies chest pain, orthopnea, claudication congestive heart failure, PND, or edema. GI: The patient denies diarrhea, constipation, nausea, vomiting, hematemesis, or hematochezia. The patient denies bloody or black tarry stools. : The patient denies increased nocturia, dysuria, hematuria, and actually states he only usually gets up once at night to go the bathroom, not sure why it became obstructed. MUSCULOSKELETAL: The patient denies joint pain, swelling or stiffness. PHYSICAL EXAMINATION: GENERAL: This is a well-developed, well-nourished, very pleasant white male, in no apparent distress at this time. VITAL SIGNS: Reveal blood pressure this evening is 121/60, pulse 82 to 91, respirations 16 to 20, O2 saturation 93% to 96% on room air, T-max 98.5. INR this morning is 1.3. GENERAL: On physical exam, this is a well-developed, well-nourished, very pleasant 79-year-old white male, in no apparent distress at this time. HEENT: Reveals normocephalic, nontraumatic cranium. The pupils are equally round and reactive. Extraocular movement is intact. Nose and throat are slightly dry. NECK: Supple without masses, nodes, or bruits. CHEST: Clear to auscultation. No rales, rhonchi, wheezes, or cough is heard. HEART: Reveals a regular rate and rhythm without murmurs, gallops, or rubs. ABDOMEN: Obese, soft, nontender without organomegaly. Normal bowel sounds are noted in all 4 quadrants. No rebound or guarding is noted. : Deferred. Van catheter is in place. EXTREMITIES: Reveal no clubbing, cyanosis, or edema. ASSESSMENT: 1. Obstructive uropathy with [id number] renal insufficiency. 2. Congestive heart failure, jbyyr-[id number]. 3. Diabetes type 2. 4. Hypertension. 5. Coronary artery disease, status post coronary artery bypass graft in 2000. 6. Chronic obstructive pulmonary disease. 7. Osteoarthritis. 8. Hyperlipidemia. 9. Mitral regurgitation. 10. Degenerative joint disease. PLAN: 1. Continue Van catheter for the next 2 weeks and then follow up with Dr. Jackson, his urologist. MEDICATIONS: Continue present medications, which include the followin. DuoNebs q.6 hours p.r.n. 2. Aspirin 81 mg daily. 3. Lipitor 20 mg at bedtime. 4. Carvedilol 3.125 daily. 5. Keflex 500 mg b.i.d. 6. Digoxin 0.125 q.a.m. 7. Colace 100 mg b.i.d. 8. Pepcid 20 mg daily. 9. Proscar 5 mg daily. 10. Sliding scale insulin for hyperglycemia. 11. Entresto 24.5-25.5 b.i.d. 12. Flomax 0.4 mg at bedtime. 13. Coumadin 5 mg every evening. RECOMMENDATIONS: 1. Continue to monitor the patient for signs and symptoms of congestive heart failure. 2. Continue to monitor the patient's heart rate for RVR. 3. Monitor the patient's respiratory status. 4. Pain management of his degenerative joint disease. 5. Stress ulcer prophylaxis. 6. Decubitus precautions. 7. DVT prophylaxis with warfarin, which has been restarted. 8. Physical therapy and occupational therapy. Job ID: [id number]
[2019-10-10] MEDS: Cephalexin 500 MG CAP PO SCH ×2 (08:19→21:46)
[2019-10-10] MEDS: Famotidine 20 MG TAB PO SCH (08:19)
[2019-10-10] MEDS: Digoxin 0.125 MG TAB PO SCH (08:19)
[2019-10-10] MEDS: Sacubitril 24.5 MG/Valsartan 25.5 MG TABLET PO SCH ×2 (08:19→21:46)
[2019-10-10] MEDS: Aspirin 81 mg Enteric Coated Tablet PO SCH (08:19)
[2019-10-10] MEDS: Docusate 100 MG CAP PO SCH ×2 (08:20→21:46)
[2019-10-10] MEDS: Finasteride 5 MG TAB PO SCH (08:20)
[2019-10-10] MEDS: Carvedilol 3.125 MG TAB PO SCH ×2 (08:20→21:46)
[2019-10-10] MEDS: Warfarin Sodium 5 MG TAB PO SCH (16:52)
--- NOTE | 2019-10-10 19:06 | PRG ---
DATE OF SERVICE: 10/10/2019 SUBJECTIVE: Mr. Alfaro is a well-developed, well-nourished, 79-year-old, white male, who was here at [facility] and had to be transferred to [facility] because of increasing signs and symptoms of congestive heart failure and increasing renal insufficiency. He was found to have significant obstructive uropathy. Van catheter was placed, which drained 4.5 L of urine and blood out. Placed in intensive care unit and continued to be diuresed. His kidney function and cardiac function significantly improved, and he eventually was stabilized. He was in the hospital there for approximately 1 week and is now transferred back to [facility] for physical therapy and occupational therapy to increase his strength and stamina. The patient states he did fairly well today with therapy. He states he walked 3 laps with multiple stops to rest and regained his balance, but he is working very hard, so he can be released to home soon. OBJECTIVE: VITAL SIGNS: Today reveal blood pressure 125/66, pulse 86, respirations 18, O2 saturation 92% to 93% on room air, T-max 98.2. GENERAL: This is a well-developed, well-nourished, very pleasant, 79-year-old, white male, in no apparent distress at this time. HEENT: Reveal normocephalic and nontraumatic cranium. Pupils are equal, round, and reactive. Extraocular movements are intact. Nose and throat are dry, but clear. NECK: Supple without masses, nodes, or bruits. HEART: Reveals a regular rate and rhythm without murmurs, gallops, or rubs. ABDOMEN: Obese, soft, and nontender without organomegaly. Normal bowel sounds are noted in all 4 quadrants. No rebound or guarding is noted. : Reveals Van catheter in place, and his urine is clear and not bloody at all. He will see Dr. Jackson in approximately 2 weeks for removal and further evaluation. EXTREMITIES: Reveal no clubbing, cyanosis, or edema today. ASSESSMENT: 1. Obstructive uropathy with ckwmh-bq-dgocmod renal insufficiency. 2. Congestive heart failure, qmkze-oq-czkvfej, with improved BNP. 3. Diabetes, type 2. 4. Hypertension. 5. Coronary artery disease, status post coronary artery bypass grafting in 2000. 6. Chronic obstructive pulmonary disease. 7. Osteoarthritis. 8. Hyperlipidemia. 9. Mitral regurgitation. 10. Degenerative joint disease. 11. Generalized weakness. PLAN: 1. Continue Van catheter for the next 2 weeks and follow up with Dr. Jackson, his urologist. 2. Continue to monitor the patient for signs and symptoms of congestive heart failure. 3. Continue to monitor the patient's heart rate for RVR. 4. Monitor the patient's creatinine and renal indices for renal insufficiency. 5. Stress ulcer prophylaxis. 6. Decubitus precautions. 7. The patient has been restarted on warfarin, and his INR is now 1.3, but moving up. 8. Continue physical therapy and occupational therapy. Job ID: [id number]
[2019-10-10] MEDS: Atorvastatin Calcium 20 MG TAB PO SCH (21:46)
[2019-10-10] MEDS: Tamsulosin HCl 0.4 MG CAP PO SCH (21:46)
[2019-10-11 05:51] LABS: INR-International Normal Ratio 1.3; Prothrombin Time 16.4 SEC (12.0-14.7)
[2019-10-11 05:59] LABS: #Basophils 0.1 thou/uL (0.0-0.2); #Eosinphils 0.3 thou/uL (0.0-0.7); #Monocytes 0.6 thou/uL (0.11-0.59); #Neutrophils 3.4 thou/uL (1.40-6.50); %Basophils 1.3 % (0.0-1.0); %Eosinophils 5.9 % (0.0-10.0); %Neutrophils 63.9 % (42.0-75.0); Anisocytosis MODERATE=16-30 cells (100X) (0-5/hpf); Bite Cells SLIGHT = 2-5 cells (100X) (0-1/hpf); Burr Cells SLIGHT = 2-5 cells (100X) (0-1/hpf); Digoxin Less than 0.15 ng/mL (0.8-2.0); Hemoglobin 9.6 g/dL (14.0-18.0); Hypochromia MODERATE=16-30 cells (100X) (0-5/hpf); MDiff Complete? YES; Mean Corpuscular HGB CONC 31.9 g/dL (32.0-36.0); Mean Corpuscular Hemoglobin 25.7 pg (27.0-31.0); Mean Corpuscular Volume 80.8 fL (78.0-98.0); Mean Platelet Volume 7.9 fL (7.4-10.4); Microcytosis MODERATE=15-30 cells (100X) (0-5/hpf); Ovalocytes MODERATE= 6-15 cells (100X) (0-1/hpf); Platelet Count 220 thou/uL (130-400); Platelet Morphology Comment Appears Adequate; RBC Distribution Width 18.6 % (11.5-14.5); Red Blood Cell (RBC) Count 3.72 mill/uL (4.70-6.10); White Blood Cell (WBC) Count 5.4 thou/uL (4.8-10.8)
[2019-10-11 06:06] LABS: ALT (SGPT) 25 U/L (8-55); AST (SGOT) 33 U/L (5-34); Albumin 2.5 g/dL (3.4-4.8); Alkaline Phosphatase 84 U/L (40-110); Anion Gap 12 mmol/L (10-20); BUN (Urea Nitrogen) 8 mg/dL (8.4-25.7); Bilirubin, Total 0.5 mg/dL (0.2-1.2); Calc. Creatinine Clearance 99 mL/min (70-130); Calcium 7.9 mg/dL (7.8-10.44); Carbon Dioxide 25 mmol/L (23-31); Chloride 104 mmol/L (98-107); Estimated GFR-MDRD Greater than 90; Glucose 109 mg/dL (83-110); Protein, Total 5.5 g/dL (5.8-8.1); Sodium 137 mmol/L (136-145)
[2019-10-11] MEDS: Digoxin 0.125 MG TAB PO SCH (08:15)
[2019-10-11] MEDS: Carvedilol 3.125 MG TAB PO SCH ×2 (08:15→21:38)
[2019-10-11] MEDS: Sacubitril 24.5 MG/Valsartan 25.5 MG TABLET PO SCH ×2 (08:15→21:37)
[2019-10-11] MEDS: Docusate 100 MG CAP PO SCH ×2 (08:15→21:37)
[2019-10-11] MEDS: Aspirin 81 mg Enteric Coated Tablet PO SCH (08:15)
[2019-10-11] MEDS: Finasteride 5 MG TAB PO SCH (08:16)
[2019-10-11] MEDS: Famotidine 20 MG TAB PO SCH (08:16)
[2019-10-11] MEDS: Cephalexin 500 MG CAP PO SCH ×2 (08:16→21:37)
[2019-10-11] MEDS: Warfarin Sodium 5 MG TAB PO SCH (16:30)
--- NOTE | 2019-10-11 21:31 | PRG ---
DATE OF SERVICE: 10/11/2019 SUBJECTIVE: Mr. Alfaro is a very pleasant 79-year-old white male who was initially admitted to [facility] and had to be transferred for worsening signs and symptoms of congestive heart failure, increased renal insufficiency. He was found to have significant obstructive uropathy and was found to have 4.5 L of urine and blood in his bladder. He was placed on intensive care unit, continued to be gently diuresed. His kidney function improved. Cardiac function improved. He was transferred back to [facility] for physical therapy and occupational therapy. The patient states he felt pretty good today and did a little more walking than he was able to yesterday. The patient states he is doing well in therapy and today looks like he walked 460 feet with a brief standing rest breaks. He is progressing well in therapy, but not met any conditions of being discharged yet. He still has decreased bed mobility, decreased endurance, decreased gait and strength, and decreased transfer ability. He gets very tired with those activities. He has felt that he continues to qualify for PT and OT. OBJECTIVE: VITAL SIGNS: Today reveal blood pressure 112/55, pulse 82 to 89, respirations 18, O2 saturation is 93% to 96% on room air, and T-max 97.0. GENERAL: This is a well-developed, well-nourished, very pleasant 79-year-old white male, in no apparent distress at this time. HEENT: Reveals normocephalic and nontraumatic cranium. Pupils are equal, round, and reactive. Extraocular movements are intact. Nose and throat are dry, but still clear. NECK: Supple without masses, nodes, or bruits. CHEST: Clear to auscultation. No rales, rhonchi, wheezes are heard. No cough was noted. HEART: Reveals a regular rate and rhythm without murmurs, gallops, or rubs. ABDOMEN: Obese, soft, nontender without organomegaly. Normal bowel sounds were noted. No rebound or guarding was noted. GENITOURINARY: Deferred. EXTREMITIES: Reveal trace edema. ASSESSMENT: 1. Obstructive uropathy, acute on chronic renal insufficiency. 2. Congestive heart failure, acute on chronic with improved BNP. 3. Diabetes, type 2. 4. Hypertension. 5. Coronary artery disease, status post coronary artery bypass grafting in 2000. 6. Chronic obstructive pulmonary disease. 7. Osteoarthritis. 8. Hyperlipidemia. 9. Mitral regurgitation. 10. Degenerative joint disease. 11. Generalized weakness. PLAN: 1. Continue Van catheter for the next 2 weeks and follow up with Dr. Jackson at that time. 2. Continue to monitor the patient's signs and symptoms of CHF. 3. Continue to monitor the patient's heart rate for RVR. 4. Monitor the patient's creatinine and renal indices for renal insufficiency. 5. Continue to monitor BNP. 6. Stress ulcer prophylaxis. 7. Decubitus precautions. 8. Continue to monitor the patient's INR which was recently started by Dr. John Rajput. 9. Continue physical therapy and occupational therapy. Job ID: [id number]
[2019-10-11] MEDS: Tamsulosin HCl 0.4 MG CAP PO SCH (21:37)
[2019-10-11] MEDS: Atorvastatin Calcium 20 MG TAB PO SCH (21:38)
[2019-10-12 05:52] LABS: INR-International Normal Ratio 1.4; Prothrombin Time 16.9 SEC (12.0-14.7)
[2019-10-12] MEDS: Cephalexin 500 MG CAP PO SCH ×2 (08:33→21:08)
[2019-10-12] MEDS: Docusate 100 MG CAP PO SCH ×2 (08:33→21:08)
[2019-10-12] MEDS: Finasteride 5 MG TAB PO SCH (08:33)
[2019-10-12] MEDS: Carvedilol 3.125 MG TAB PO SCH ×2 (08:33→21:08)
[2019-10-12] MEDS: Digoxin 0.125 MG TAB PO SCH (08:34)
[2019-10-12] MEDS: Famotidine 20 MG TAB PO SCH (08:36)
[2019-10-12] MEDS: Sacubitril 24.5 MG/Valsartan 25.5 MG TABLET PO SCH ×2 (08:37→21:08)
[2019-10-12] MEDS: Aspirin 81 mg Enteric Coated Tablet PO SCH (08:37)
[2019-10-12] MEDS: Warfarin Sodium 5 MG TAB PO SCH (17:05)
[2019-10-12] MEDS: Tamsulosin HCl 0.4 MG CAP PO SCH (21:08)
[2019-10-12] MEDS: Atorvastatin Calcium 20 MG TAB PO SCH (21:08)
[2019-10-13 05:25] LABS: INR-International Normal Ratio 1.4; Prothrombin Time 17.1 SEC (12.0-14.7)
[2019-10-13 05:31] LABS: Band 5 % (5-11); Eosinophils 7 % (0-10); Hemoglobin 9.7 g/dL (14.0-18.0); Hypochromia MODERATE=16-30 cells (100X) (0-5/hpf); Lymphocytes 15 % (21-51); MDiff Complete? YES; Mean Corpuscular HGB CONC 31.5 g/dL (32.0-36.0); Mean Corpuscular Hemoglobin 25.5 pg (27.0-31.0); Mean Platelet Volume 9.2 fL (7.4-10.4); Metamyelocyte 2 % (0-0); Microcytosis SLIGHT = 6-15 cells (100X) (0-5/hpf); Monocytes 6 % (0-10); Neutrophil 64 % (42-75); Platelet Count 236 thou/uL (130-400); Platelet Morphology Comment Appears Adequate; RBC Distribution Width 18.5 % (11.5-14.5); Reactive Lymphocytes 1 % (0-10); Red Blood Cell (RBC) Count 3.82 mill/uL (4.70-6.10); White Blood Cell (WBC) Count 4.1 thou/uL (4.8-10.8)
[2019-10-13 05:33] LABS: Anion Gap 12 mmol/L (10-20); BUN (Urea Nitrogen) 11 mg/dL (8.4-25.7); Calc. Creatinine Clearance 105 mL/min (70-130); Calcium 7.9 mg/dL (7.8-10.44); Carbon Dioxide 24 mmol/L (23-31); Chloride 105 mmol/L (98-107); Estimated GFR-MDRD Greater than 90; Glucose 100 mg/dL (83-110); Sodium 137 mmol/L (136-145)
[2019-10-13] MEDS: Aspirin 81 mg Enteric Coated Tablet PO SCH (08:40)
[2019-10-13] MEDS: Cephalexin 500 MG CAP PO SCH ×2 (08:40→21:24)
[2019-10-13] MEDS: Finasteride 5 MG TAB PO SCH (08:40)
[2019-10-13] MEDS: Docusate 100 MG CAP PO SCH ×2 (08:40→21:24)
[2019-10-13] MEDS: Famotidine 20 MG TAB PO SCH (08:41)
[2019-10-13] MEDS: Carvedilol 3.125 MG TAB PO SCH ×2 (08:41→21:25)
[2019-10-13] MEDS: Sacubitril 24.5 MG/Valsartan 25.5 MG TABLET PO SCH ×2 (08:41→21:24)
[2019-10-13] MEDS: Digoxin 0.125 MG TAB PO SCH (08:41)
--- NOTE | 2019-10-13 09:43 | PRG ---
DATE OF SERVICE: 10/13/[address] Arnaud Dwyer. SUBJECTIVE: The patient feels well, sitting up in the bed. No complaints. States he has had no further orthostatic hypotension or chest pain. OBJECTIVE: LUNGS: Clear. CARDIAC: Irregular rhythm. ABDOMEN: Soft and nontender. SKIN/EXTREMITIES: No edema. LABORATORY DATA: Sodium is 137, potassium 4.0, chloride 105, bicarb 24, BUN 11, creatinine 0.71, glucose 100, calcium 7.9. BNP is 885, which is improved from 1585 two days previously. ASSESSMENT: 1. Congestive heart failure, ugpkz-am-jlmihps, improved BNP, and no further orthostatic symptoms. 2. Type 2 diabetes, controlled to goal. 3. Obstructive uropathy, stable with Van catheter in place, to be followed by Dr. Jackson. 4. Chronic kidney disease, resolved with GFR greater than 90. PLAN: 1. Continue Van catheter. 2. Continue PT and OT. 3. Continue carvedilol twice daily and Entresto for congestive heart failure. 4. Continue warfarin for atrial fibrillation, but increase dose to 6 mg daily as INR concisely at 1.4. Job ID: [id number]
[2019-10-13] MEDS ORDERED: HumaLOG 300 UNITS/3 ML VIAL ONE (12:02)
[2019-10-13] MEDS: HumaLOG 300 UNITS/3 ML VIAL SC PRN ×2 (12:12→17:22)
[2019-10-13] MEDS: Warfarin Sodium 3 MG TAB PO SCH (17:22)
[2019-10-13] MEDS: Atorvastatin Calcium 20 MG TAB PO SCH (21:24)
[2019-10-13] MEDS: Tamsulosin HCl 0.4 MG CAP PO SCH (21:24)
[2019-10-14 05:35] LABS: INR-International Normal Ratio 1.3; Prothrombin Time 16.3 SEC (12.0-14.7)
[2019-10-14] MEDS: Finasteride 5 MG TAB PO SCH (08:43)
[2019-10-14] MEDS: Cephalexin 500 MG CAP PO SCH ×2 (08:43→20:36)
[2019-10-14] MEDS: Carvedilol 3.125 MG TAB PO SCH ×2 (08:43→20:36)
[2019-10-14] MEDS: Aspirin 81 mg Enteric Coated Tablet PO SCH (08:44)
[2019-10-14] MEDS: Digoxin 0.125 MG TAB PO SCH (08:44)
[2019-10-14] MEDS: Docusate 100 MG CAP PO SCH ×3 (08:45→20:41)
[2019-10-14] MEDS: Sacubitril 24.5 MG/Valsartan 25.5 MG TABLET PO SCH ×2 (08:46→21:03)
[2019-10-14] MEDS: Famotidine 20 MG TAB PO SCH (08:47)
[2019-10-14] MEDS: Warfarin Sodium 3 MG TAB PO SCH (16:27)
--- NOTE | 2019-10-14 20:26 | PRG ---
DATE OF SERVICE: 10/14/2019 SUBJECTIVE: The patient is up in chair. No complaints or shortness of breath. He has had no orthostasis this weekend. Feels much stronger and is ready for more therapy. OBJECTIVE: VITAL SIGNS: Show temperature 97.5, pulse 89, respirations 20, O2 saturations 94% on room air, blood pressure 128/72. PT/INR still subtherapeutic at 1.3 on 6 mg of warfarin since yesterday. ASSESSMENT: 1. Atrial fibrillation with inadequate anticoagulation with good weight control on 6 mg of warfarin and will increase to 7.5 mg. This does not appear to be improving. 2. Congestive heart failure appears to be stabilizing with improved BNP and stable vital signs. No further orthostasis and will continue Entresto and carvedilol. 3. Obstructive uropathy with Van catheter in place, being followed by Urology. 4. Chronic kidney disease, resolved. PLAN: 1. Increase warfarin to 7.5 mg daily. Continue carvedilol twice daily and Entresto twice daily for congestive heart failure. 2. Continue PT/OT. 3. Continue Van catheter. Job ID: [id number]
[2019-10-14] MEDS: Tamsulosin HCl 0.4 MG CAP PO SCH (20:36)
[2019-10-14] MEDS: Atorvastatin Calcium 20 MG TAB PO SCH (20:36)
[2019-10-14] MEDS ORDERED: Sacubitril 49 MG/Valsartan 51 MG TABLET PO SCH (21:15)
[2019-10-15 05:25] LABS: INR-International Normal Ratio 1.4; Prothrombin Time 17.3 SEC (12.0-14.7)
[2019-10-15] MEDS: Aspirin 81 mg Enteric Coated Tablet PO SCH (08:43)
[2019-10-15] MEDS: Carvedilol 3.125 MG TAB PO SCH ×2 (08:44→20:17)
[2019-10-15] MEDS: Cephalexin 500 MG CAP PO SCH ×2 (08:44→20:16)
[2019-10-15] MEDS: Famotidine 20 MG TAB PO SCH (08:45)
[2019-10-15] MEDS: Digoxin 0.125 MG TAB PO SCH (08:45)
[2019-10-15] MEDS: Docusate 100 MG CAP PO SCH ×2 (08:45→20:17)
[2019-10-15] MEDS: Finasteride 5 MG TAB PO SCH (08:45)
[2019-10-15] MEDS: Sacubitril 49 MG/Valsartan 51 MG TABLET PO SCH ×2 (08:46→20:17)
[2019-10-15] MEDS: Warfarin Sodium 5 MG TAB PO SCH (16:53)
--- NOTE | 2019-10-15 19:38 | PRG ---
DATE OF SERVICE: 10/15/2019 SUBJECTIVE: Mr. Alfaro is a 79-year-old white male, admitted to [facility], but had worsening signs of CHF and increased renal sufficiency. He was transferred to [facility] and found to have significant obstructive uropathy. He was diuresed and stabilized and eventually transferred back to [facility] for continued physical therapy and occupational therapy. The patient states over the weekend, he did walk with one of the nurses and actually he is doing very well. After evaluation with PT and OT, it is felt that most likely he can be discharged on Tuesday afternoon. We will get things ready for that time. OBJECTIVE: VITAL SIGNS: Today reveal blood pressure this morning was 108/55. Pulse 76, respirations 18, O2 saturation 97% on room air, T-max 96.9. GENERAL: This is a well-developed, well-nourished, very pleasant, 79-year-old white male, in no apparent distress at this time. HEENT: Reveals normocephalic and nontraumatic cranium. Pupils are equally round and reactive. Extraocular movements are intact. Nose and throat are slightly dry. NECK: Supple without masses, nodes, or bruits. CHEST: Clear to auscultation. No rales, rhonchi, or wheezes are heard. HEART: Reveals a regular rate and rhythm without murmurs, gallops, or rubs. ABDOMEN: Soft, nontender without organomegaly. Normal bowel sounds are noted. No rebound or guarding is noted. : Deferred. EXTREMITIES: Reveal no clubbing or cyanosis, and no edema is noted today. ASSESSMENT: 1. Atrial fibrillation with poor anticoagulation. 2. Congestive heart failure, stable. 3. Obstructive uropathy with Van catheter in place, to be followed by Urology in 2 weeks. 4. Chronic kidney disease, resolved. 5. Diabetes, type 2. 6. Hypertension. 7. Chronic obstructive pulmonary disease. 8. Osteoarthritis. 9. Hyperlipidemia. 10. Mitral regurgitation. 11. Degenerative joint disease. 12. Generalized weakness. PLAN: 1. The patient's Coumadin has been increased to 7.5 mg. 2. Continue to monitor the patient's INR. 3. Continue carvedilol b.i.d. and Entresto b.i.d. for CHF. 4. Continue Van catheter until the patient is to see Dr. Jackson. 5. The patient should be getting an appointment with Dr. Jackson sometimes after discharge. 6. Continue stress ulcer prophylaxis. 7. Decubitus precautions. 8. DVT prophylaxis per Primary Service. 9. Continue physical therapy and occupational therapy. 10. Lab work tomorrow. Job ID: [id number]
[2019-10-15] MEDS: Tamsulosin HCl 0.4 MG CAP PO SCH (20:16)
[2019-10-15] MEDS: Atorvastatin Calcium 20 MG TAB PO SCH (20:17)
[2019-10-16 03:28] VITALS: BMI 22.7
[2019-10-16 05:45] LABS: INR-International Normal Ratio 1.3; Prothrombin Time 16.6 SEC (12.0-14.7)
[2019-10-16 05:54] LABS: ALT (SGPT) 19 U/L (8-55); AST (SGOT) 25 U/L (5-34); Albumin 2.6 g/dL (3.4-4.8); Alkaline Phosphatase 80 U/L (40-110); Anion Gap 12 mmol/L (10-20); BUN (Urea Nitrogen) 15 mg/dL (8.4-25.7); Bilirubin, Total 0.4 mg/dL (0.2-1.2); Calc. Creatinine Clearance 93 mL/min (70-130); Calcium 8.1 mg/dL (7.8-10.44); Carbon Dioxide 25 mmol/L (23-31); Chloride 105 mmol/L (98-107); Digoxin 0.51 ng/mL (0.8-2.0); Estimated GFR-MDRD Greater than 90; Globulin 3.2 g/dL (2.4-3.5); Glucose 103 mg/dL (83-110); Potassium 4.1 mmol/L (3.5-5.1); Protein, Total 5.8 g/dL (5.8-8.1); Sodium 138 mmol/L (136-145)
[2019-10-16 05:57] LABS: #Basophils 0.1 thou/uL (0.0-0.2); #Eosinphils 0.2 thou/uL (0.0-0.7); #Lymphocytes 0.9 thou/uL (1.20-3.40); #Monocytes 0.5 thou/uL (0.11-0.59); %Basophils 1.8 % (0.0-1.0); %Eosinophils 4.8 % (0.0-10.0); %Lymphocytes 24.6 % (21.0-51.0); %Neutrophils 55.9 % (42.0-75.0); Hypochromia MODERATE=16-30 cells (100X) (0-5/hpf); MDiff Complete? YES; Mean Corpuscular HGB CONC 30.8 g/dL (32.0-36.0); Mean Corpuscular Volume 81.2 fL (78.0-98.0); Mean Platelet Volume 7.8 fL (7.4-10.4); Platelet Count 227 thou/uL (130-400); Platelet Morphology Comment Appears Adequate; RBC Distribution Width 18.8 % (11.5-14.5); Red Blood Cell (RBC) Count 3.98 mill/uL (4.70-6.10); White Blood Cell (WBC) Count 3.5 thou/uL (4.8-10.8)
[2019-10-16] MEDS: Aspirin 81 mg Enteric Coated Tablet PO SCH (08:41)
[2019-10-16] MEDS: Carvedilol 3.125 MG TAB PO SCH ×2 (08:41→20:24)
[2019-10-16] MEDS: Digoxin 0.125 MG TAB PO SCH (08:42)
[2019-10-16] MEDS: Cephalexin 500 MG CAP PO SCH ×2 (08:42→20:23)
[2019-10-16] MEDS: Sacubitril 49 MG/Valsartan 51 MG TABLET PO SCH ×2 (08:43→20:23)
[2019-10-16] MEDS: Docusate 100 MG CAP PO SCH ×2 (08:43→20:24)
[2019-10-16] MEDS: Finasteride 5 MG TAB PO SCH (08:43)
[2019-10-16] MEDS: Famotidine 20 MG TAB PO SCH (08:43)
--- NOTE | 2019-10-16 10:38 | PRG ---
DATE OF SERVICE: 10/16/2019 SUBJECTIVE: Mr. Alfaro is a well-developed, 79-year-old white male, who was transferred from [facility] to [facility]. He was found to have obstructive uropathy as a cause of his significant worsening CHF and increased renal insufficiency. He was diuresed and a Van catheter was placed, to remain in place for 2 weeks until he sees Dr. Jackson. We are in the process of getting an appointment with Dr. Jackson. Hopefully, we will have an appointment for at least tomorrow. The patient states he is doing well and walking much better. He is walking 460 plus feet. OBJECTIVE: VITAL SIGNS: Today reveal blood pressure this morning 109/57, pulse 74 to 75, respirations 16 to 20, O2 saturation 95% on room air, T-max 97.6. GENERAL: On physical exam, this is a well-developed, well-nourished, thin, white male, in no apparent distress at this time. HEENT: Reveals normocephalic and nontraumatic cranium. Pupils are equally round and reactive. Extraocular movements are intact. Nose and throat are slightly dry. NECK: Supple without masses, nodes, or bruits. CHEST: Clear to auscultation. No rales, rhonchi, wheezes, or cough is heard. HEART: Reveals a regular rate and rhythm without murmurs, gallops, or rubs. ABDOMEN: Soft, nontender without organomegaly. Normal bowel sounds are noted. No rebound or guarding is noted. GENITOURINARY: Deferred. EXTREMITIES: Reveal much better strength and stamina. No clubbing, cyanosis, or edema is noted. ASSESSMENT: 1. History of congestive heart failure, recently. Stable. 2. Atrial fibrillation with poor anticoagulation with INR of 1.3, and it was increased Coumadin. 3. Obstructive uropathy, Van catheter in place, to be followed by Dr. Jackson in 2 weeks from placement. 4. Chronic kidney disease, resolved. 5. Diabetes type 2, stable. 6. Hypertension. 7. Chronic obstructive pulmonary disease. 8. Osteoarthritis. 9. Hyperlipidemia. 10. Mitral regurgitation. 11. Degenerative joint disease. 12. Generalized weakness. PLAN: 1. The patient's Coumadin is up . We will await the INR to follow. 2. Continue to monitor the patient's INR closely. 3. Continue carvedilol b.i.d. and Entresto b.i.d. for CHF. 4. Continue Van catheter until the patient sees Dr. Jackson. 5. Continue stress ulcer prophylaxis. 6. Decubitus precautions. 7. DVT prophylaxis per Primary Service. 8. Continue PT and OT. 9. Most likely discharge tomorrow afternoon. LABORATORY DATA: Labs this morning reveal BNP was 835, which is much improved over 1999. Creatinine was 0.76, which is much better over 2.5. Dig level is still slightly low at 0.51. INR is 1.3. Job ID: [id number]
[2019-10-16] MEDS: Warfarin Sodium 5 MG TAB PO SCH (17:42)
[2019-10-16] MEDS: Atorvastatin Calcium 20 MG TAB PO SCH (20:23)
[2019-10-16] MEDS: Tamsulosin HCl 0.4 MG CAP PO SCH (20:23)
[2019-10-17 05:28] LABS: INR-International Normal Ratio 1.3; Prothrombin Time 15.9 SEC (12.0-14.7)
[2019-10-17] MEDS: Aspirin 81 mg Enteric Coated Tablet PO SCH (08:46)
[2019-10-17] MEDS: Sacubitril 49 MG/Valsartan 51 MG TABLET PO SCH (08:47)
[2019-10-17] MEDS: Cephalexin 500 MG CAP PO SCH (08:47)
[2019-10-17] MEDS: Docusate 100 MG CAP PO SCH (08:48)
[2019-10-17] MEDS: Finasteride 5 MG TAB PO SCH (08:48)
[2019-10-17] MEDS: Digoxin 0.125 MG TAB PO SCH (08:48)
[2019-10-17] MEDS: Carvedilol 3.125 MG TAB PO SCH (08:48)
[2019-10-17] MEDS: Famotidine 20 MG TAB PO SCH (08:49)
[2019-10-17 15:56] VITALS: BP 127/59; TEMP 98.4
--- NOTE | 2019-10-17 19:56 | DIS ---
DATE OF ADMISSION: 10/09/2019 DATE OF DISCHARGE: 10/17/2019 HOSPITAL COURSE: Mr. Alfaro is a well-developed, well-nourished 79-year-old white male, transferred from [facility] to [facility] for significantly worsening CHF and increasing renal insufficiency. He was found to have obstructive uropathy, had a Van catheter placed. History in a place for 2 weeks until he sees Dr. Jackson on Tuesday at 2:15 in his office. The patient has actually done very well in physical therapy and has reached maximum medical benefit and he is ready for discharge today. DISCHARGE MEDICATIONS: The patient's discharge medications will include the followin. Aspirin 81 mg daily. 2. Atorvastatin 20 mg daily at bedtime. 3. Coreg 3.125 daily. 4. Digoxin 0.125 mg each morning. 5. Finasteride (Proscar) 5 mg daily. 6. Entresto half a pill twice a day. 7. Tamsulosin 0.4 mg daily. 8. Warfarin 7.5 mg every evening at bedtime. PHYSICAL EXAMINATION: VITAL SIGNS: Today reveal blood pressure this morning 108/57, pulse 75, respirations 18, O2 saturation 97% on room air, and T-max 98.4. GENERAL: This is a well-developed, well-nourished very pleasant 79-year-old white male, who is seen today in no apparent distress. HEENT: Reveals normocephalic and nontraumatic cranium. Pupils equally round and reactive. Extraocular movements are intact. Nose and throat are slightly dry. NECK: Supple without masses, nodes, or bruits. CHEST: Clear to auscultation. No rales, rhonchi, or wheezes are heard. HEART: Reveals a regular rate and rhythm without murmurs, gallops, or rubs. ABDOMEN: Soft and nontender without organomegaly. Normal bowel sounds are noted in all 4 quadrants. No rebound or guarding is noted. : Deferred. EXTREMITIES: Reveal no clubbing, cyanosis, or edema. The patient is much stronger. LABORATORY DATA: Last laboratory was done yesterday, which revealed an INR still low at 1.3 and his Coumadin was increased from 5 to 7.5. Hemoglobin and hematocrit are 10.0 and 32.4 with a platelet count of 227. The patient's sodium is 138, potassium 4.1, his creatinine is 0.76 with a GFR greater than 90. His sugars were excellent at 119. His BNP done yesterday was 835. Digoxin level was 0.51. ASSESSMENT: 1. History of congestive heart failure, presently on Entresto when stable. 2. Atrial fibrillation with INR of 1.3. His Coumadin has been increased to 7.5 mg. 3. Obstructive uropathy. Van catheter in place to be taken out by Dr. Jackson. 4. Chronic kidney disease stage 3, resolved. 5. Diabetes, type 2. 6. Hypertension. 7. Chronic obstructive pulmonary disease. 8. Osteoarthritis. 9. Hyperlipidemia. 10. Mitral regurgitation. 11. Degenerative joint disease. 12. Generalized weakness. PLAN: 1. The patient's Coumadin has been increased to 7.5 mg. We will repeat an INR on Tuesday. We will continue to monitor that closely. 2. The patient is on carvedilol and we will continue on that dosage, which is 3.125 b.i.d. 3. The patient will continue on his Entresto, which is and he will take half a pill twice a day. 4. The patient will continue with physical therapy and occupational therapy. 5. Continue with apixaban, DVT prophylaxis. 6. Continue stress ulcer prophylaxis. 7. Continue decubitus precautions. 8. Discharge this afternoon at 3 o'clock when his family can pick him up. Job ID: [id number]
--- NOTE | 2019-10-18 07:16 | PQF ---
Lm Alfaro C. HENRY MD [id number] CLINICAL DOCUMENTATION CLARIFICATION FORM: POST DISCHARGE Addendum to original discharge summary date: ____ Late entry note date: __ DATE: 10/18/2019 ATTN: Yamini STRANGE MD Please exercise your independent, professional judgment in responding to the clarification form. Clinical indicators are provided on the bottom of this form for your review Please check appropriate box(s): HEART FAILURE: TYPE: [ ] Systolic / HFrEF [ ] Diastolic / HFpEF [ ] Combined Systolic / Diastolic [ ] Other diagnosis [ ] Unable to determine For continuity of documentation, please document condition throughout progress notes and discharge summary. Thank You. CLINICAL INDICATORS - SIGNS / SYMPTOMS / LABS - Congestive heart failure, acute on chronic- H&P, 10/09, Yamini STRANGE MD - Mitral regurgitation- H&P, 10/09, Yamini STRANGE MD - BP: 104/57L on 10/11, 145/69H on 10/15, 107/59L on 10/16- Vital signs RISKS: - PMH: Hypertension- H&P, 10/09, Yamini STRANGE MD TREATMENTS: - Nitroglycerin.IV- MAR, 10/09 (This form is maintained as a part of the permanent medical record) 2014 [employer] All Rights Reserved Owen [email or web address] [email or web address]
== END 2019-10-17 15:45 | disposition home health service (06) | DRG 699 ==
LOC: NAV ACUTE 10:53
PROVIDERS: ADMIT Family Medicine; ATTEND Family Medicine
DX: N13.9 Obstructive and reflux uropathy, unspecified (principal); I13.0 Hypertensive heart and chronic kidney disease with heart failure and stage 1 through stage 4 chronic kidney disease, or unspecified chronic kidney disease; I50.9 Heart failure, unspecified; I48.91 Unspecified atrial fibrillation; N18.3 Chronic kidney disease, stage 3 (moderate); E11.22 Type 2 diabetes mellitus with diabetic chronic kidney disease; J44.9 Chronic obstructive pulmonary disease, unspecified; M19.90 Unspecified osteoarthritis, unspecified site; E78.5 Hyperlipidemia, unspecified; I25.10 Atherosclerotic heart disease of native coronary artery without angina pectoris; N28.9 Disorder of kidney and ureter, unspecified; I34.0 Nonrheumatic mitral (valve) insufficiency; Z96.652 Presence of left artificial knee joint; Z79.01 Long term (current) use of anticoagulants; Z98.42 Cataract extraction status, left eye; Z98.41 Cataract extraction status, right eye; Z95.1 Presence of aortocoronary bypass graft; Z95.2 Presence of prosthetic heart valve
CPT/HCPCS: 36415; 36416; 80048; 80053; 80162; 83880; 85007; 85025; 85027; 85610; 87086